=== PATIENT | female | born 1935 | race Caucasian/White ===

== ENCOUNTER 2017-02-16 22:08 | Emergency (ER) | payer MEDICARE, MEDICAID ==
[2017-02-16] MEDS ORDERED: Aspirin Low Dose CHEW TAB* 81 MG PO ONE (23:37)
--- NOTE | 2017-02-16 23:37 | ED ---
I, Oh,Soadrianna, scribed for Avinash Silver MD on 02/16/17 at 2235 . Shortness of Breath - HPI Summary HPI Summary: Somewhat limited HPI due to language barrier. Adult daughter present at bedside translating. This 81 y/o female presents to ED for SOB since this afternoon. Pt also reports racing/irregular palpitation, fatigue, and LUE pain radiating to esophagus. Pt had similar episode a couple of days ago. PMHx includes hypothyroidism, HTN, breast CA in 2004, lymphoma in 2010, and compression fx of L-, T- vertabrae. Daughter reports that pt has had normal EKG in spite of hx of recurrent palpitation. Primary care involves Dr. Billings. - History of Current Complaint Chief Complaint: EDChestPainROMI Time Seen by Provider: 02/16/17 22:25 Hx Obtained From: Patient, Medical Records Onset/Duration: Sudden Onset Timing: Intermittent Episodes Lasting: Current Severity: None Dyspnea At: Rest - Allergy/Home Medications Allergies/Adverse Reactions: Allergies Allergy/AdvReac Type Severity Reaction Status Date / Time RENATE Inhibitors AdvReac Coughing Verified 02/16/17 22:16 PMH/Surg Hx/FS Hx/Imm Hx Endocrine/Hematology History: Reports: Hx Diabetes, Hx Thyroid Disease, Hx Anemia Denies: Hx Systemic Lupus Erythematosus Cardiovascular History: Reports: Hx Hypercholesterolemia, Hx Hypertension Denies: Hx Congestive Heart Failure, Hx Pacemaker/ICD Respiratory History: Reports: Hx Pneumonia GI History: Reports: Hx Ulcer - hX of, treated with meds 1997, no problems since , Other GI Disorders - original sight lymphoma abdomen History: Denies: Hx Dialysis, Hx Renal Disease Musculoskeletal History: Reports: Hx Arthritis, Hx Back Problems Denies: Hx Rheumatoid Arthritis Sensory History: Reports: Hx Contacts or Glasses Denies: Hx Hearing Aid Opthamlomology History: Reports: Hx Contacts or Glasses Neurological History: Reports: Hx Headaches, Hx Migraine - Hx of, none in long time Psychiatric History: Denies: Hx Panic Disorder - Cancer History Cancer Type, Location and Year: Breast CA 2004, Lymphoma 2010 Hx Chemotherapy: Yes - Surgical History Surgery Procedure, Year, and Place: APPENDECTOMY,LEFT MASTECTOMY, Hx Anesthesia Reactions: No Infectious Disease History: No Infectious Disease History: Denies: Traveled Outside the [place] in Last 30 Days - Family History Known Family History: Negative: Other - negative adverse anesthesia reaction and malignant hyperthermia - Social History Alcohol Use: None Hx Substance Use: No Substance Use Type: Reports: None Hx Tobacco Use: No Smoking Status (MU): Never Smoked Tobacco Have You Smoked in the Last Year: No Review of Systems Positive: Fatigue. Negative: Fever Positive: Palpitations - racing/irregular Positive: Shortness Of Breath Positive: Other - LUE arm pain radiating to esophagus All Other Systems Reviewed And Are Negative: Yes Physical Exam Triage Information Reviewed: Yes Vital Signs On Initial Exam: Initial Vitals Temp Pulse Resp BP Pulse Ox 98.7 F 101 14 143/88 98 02/16/17 22:10 02/16/17 22:10 02/16/17 22:10 02/16/17 22:10 02/16/17 22:10 Vital Signs Reviewed: Yes Appearance: Positive: Well-Appearing, No Pain Distress Skin: Positive: Warm Head/Face: Positive: Normal Head/Face Inspection Eyes: Positive: TONE ENT: Positive: Hearing grossly normal Neck: Positive: Supple Respiratory/Lung Sounds: Positive: Breath Sounds Present Cardiovascular: Positive: RRR Abdomen Description: Positive: Nontender, Soft Bowel Sounds: Positive: Present Musculoskeletal: Positive: Strength/ROM Intact Neurological: Positive: Alert, Oriented to Person Place, Time Psychiatric: Positive: Affect/Mood Appropriate Diagnostics - Vital Signs Vital Signs Temp Pulse Resp BP Pulse Ox 02/16/17 22:10 98.7 F 101 14 143/88 98 - Laboratory Result Diagrams: 02/16/17 23:05 02/17/17 00:55 Lab Statement: Any lab studies that have been ordered have been reviewed, and results considered in the medical decision making process. - Radiology CXR Radiology Interpretation Completed By: ED Physician - See EMR - EKG 2219 Cardiac Rate: NL - 98 bpm EKG Rhythm: Sinus Rhythm EKG Interpretation: LBBB Re-Evaluation - Re-Evaluation First Eval Change: Improved - remins pain free Course/Dx - Diagnoses Provider Diagnoses: Palpitations Discharge - Discharge Plan Condition: Stable Disposition: HOME Patient Education Materials: Palpitations (ED) Referrals: Christy Billings MD [Primary Care Provider] - 2 Days The documentation as recorded by the Kam gore Soohyun accurately reflects the service I personally performed and the decisions made by , Avinash Silver MD.
[2017-02-16 23:57] LABS: Hematocrit 35 % (35-47); Hemoglobin 11.7 g/dl (12.0-16.0); Mean Corpuscular HGB Conc 34 g/dl (31-36); Mean Corpuscular Hemoglobin 32 pg (27-31); Mean Corpuscular Volume 94 fL (80-97); Mean Platelet Volume 9 um3 (7.4-10.4); Red Blood Count 3.71 10^6/ul (4.0-5.4); Red Cell Distribution Width 14 % (10.5-15); White Blood Count 7.3 10^3/ul (3.5-10.8)
[2017-02-17 00:17] LABS: ALT 21 U/L (7-52); Albumin 4.2 g/dL (3.2-5.2); Alkaline Phosphatase 76 U/L (34-104); Anion Gap 1 mmol/L (2-11); BUN/Creatinine Ratio 27.4 (8-20); Blood Urea Nitrogen 34 mg/dL (6-24); CO2 Carbon Dioxide 23 mmol/L (22-32); Calcium 8.5 mg/dL (8.6-10.3); Chloride 107 mmol/L (101-111); EGFR African American 53.7 (>60); EGFR Non-African American 41.7 (>60); Globulin 3.6 g/dL (2-4); Glucose 111 mg/dL (70-100); Sodium 131 mmol/L (133-145); Total Protein 7.8 g/dL (6.4-8.9); Troponin I 0.01 ng/mL (<0.04)
[2017-02-17 04:18] VITALS: BP 142/66
--- NOTE | 2017-02-17 07:57 | RAD ---
INDICATION: Chest pain. COMPARISON: Comparison is made with a prior chest x-ray study from February 17, 2016. TECHNIQUE: Dual-energy PA and lateral views of the chest were obtained. FINDINGS: The heart is within normal limits in size. Mediastinal and hilar contours appear within normal limits. The lungs are underinflated and clear. No pleural effusion is seen. There is a severe compression fracture of a lower dorsal vertebral body which is unchanged from a prior CT of the chest from February 17, 2016. IMPRESSION: NO EVIDENCE FOR ACTIVE CARDIOPULMONARY DISEASE.
== END 2017-02-17 04:20 | disposition home or self-care (01) ==
LOC: ED 22:08
DX: R00.2 Palpitations (principal); E03.9 Hypothyroidism, unspecified; I10 Essential (primary) hypertension; E11.9 Type 2 diabetes mellitus without complications; E78.00 Pure hypercholesterolemia, unspecified; I44.7 Left bundle-branch block, unspecified; Z85.3 Personal history of malignant neoplasm of breast
CPT/HCPCS: 36415; 71020; 80053; 84484; 85025; 93005; 99284; A9270-GY

== ENCOUNTER 2018-01-03 19:59 | Emergency (ER) | payer MEDICARE, MEDICAID ==
[2018-01-03] MEDS ORDERED: NS 0.9% 1000 ML* 1,000 ML IV ONE (22:17)
[2018-01-03 22:47] LABS: ABS Basophils 0.1 10^3/ul (0-0.2); ABS Eosinophils 0.3 10^3/ul (0-0.6); ABS Lymphocytes 2.6 10^3/ul (1.0-4.8); ABS Neutrophils 4.1 10^3/ul (1.5-7.7); ABS Nucleated RBC 0 10^3/ul; Eosinophil % 3.9 % (0-6); Hematocrit 34 % (35-47); Hemoglobin 11.3 g/dl (12.0-16.0); Lymphocyte % 31.9 % (25-47); Mean Corpuscular HGB Conc 34 g/dl (31-36); Mean Corpuscular Hemoglobin 32 pg (27-31); Mean Corpuscular Volume 94 fL (80-97); Mean Platelet Volume 8 um3 (7.4-10.4); Nucleated Red Blood Cells % 0; Platelet Count 237 10^3/ul (150-450); Red Blood Count 3.57 10^6/ul (4.0-5.4); Red Cell Distribution Width 14 % (10.5-15); White Blood Count 8.1 10^3/ul (3.5-10.8)
[2018-01-03 22:55] LABS: INR 0.88 (0.77-1.02)
[2018-01-03 23:01] LABS: EGFR Non-African American 38.1 (>60)
[2018-01-03 23:32] VITALS: BP 114/57
--- NOTE | 2018-01-04 06:00 | ED ---
Rivera Newman Nikita, scribed for Valentin Cash MD on 01/03/18 at 2210 . HPI Chest Pain - HPI Summary HPI Summary: This patient is an 82 year old F presenting to ED with a chief complaint of CP since 1600 today. The CC is described as feeling burning with extra beats ( PVCs). The patient rates the pain 5/10 in severity. Symptoms aggravated by nothing. Symptoms alleviated by nothing. Patient reports SOB, palpitations, and abdominal bloating. Family reports she has a cough (secondary to heart medication). Patient denies N/V/D. Pt had a heart catheterization. - History of Current Complaint Chief Complaint: EDChestPainROMI Time Seen by Provider: 01/03/18 21:59 Hx Obtained From: Patient Onset/Duration: Started Hours Ago, Still Present Timing: Constant, Lasting Hours Initial Severity: Moderate Current Severity: Moderate Pain Intensity: 5 Pain Scale Used: 0-10 Numeric Character: Burning Aggravating Factor(s): Nothing Alleviating Factor(s): Nothing Associated Signs and Symptoms: Positive: Other: - Allergy/Home Medications Allergies/Adverse Reactions: Allergies Allergy/AdvReac Type Severity Reaction Status Date / Time RENATE Inhibitors Allergy Unknown Verified 01/03/18 20:06 Reaction Details PMH/Surg Hx/FS Hx/Imm Hx Endocrine/Hematology History: Reports: Hx Diabetes, Hx Thyroid Disease, Hx Anemia Denies: Hx Systemic Lupus Erythematosus Cardiovascular History: Reports: Hx Hypercholesterolemia, Hx Hypertension Denies: Hx Congestive Heart Failure, Hx Pacemaker/ICD Respiratory History: Reports: Hx Pneumonia GI History: Reports: Hx Ulcer - hX of, treated with meds 1997, no problems since , Other GI Disorders - original sight lymphoma abdomen History: Denies: Hx Dialysis, Hx Renal Disease Musculoskeletal History: Reports: Hx Arthritis, Hx Back Problems Denies: Hx Rheumatoid Arthritis, Hx Osteoporosis - UNKNOWN SPEAKS CHILEAN ONLY Sensory History: Reports: Hx Contacts or Glasses Denies: Hx Hearing Aid Opthamlomology History: Reports: Hx Contacts or Glasses Neurological History: Reports: Hx Headaches, Hx Migraine - Hx of, none in long time Psychiatric History: Denies: Hx Panic Disorder - Cancer History Cancer Type, Location and Year: Breast CA 2004, Lymphoma 2010 Hx Chemotherapy: Yes Hx Radiation Therapy: Yes - Surgical History Surgery Procedure, Year, and Place: APPENDECTOMY,LEFT MASTECTOMY, growths removed from skin, Hx Anesthesia Reactions: No Infectious Disease History: No Infectious Disease History: Denies: Traveled Outside the [place] in Last 30 Days - Family History Known Family History: Negative: Other - negative adverse anesthesia reaction and malignant hyperthermia - Social History Alcohol Use: None Hx Substance Use: No Substance Use Type: Reports: None Hx Tobacco Use: No Smoking Status (MU): Never Smoked Tobacco Have You Smoked in the Last Year: No Review of Systems Positive: Palpitations, Chest Pain Positive: Shortness Of Breath, Cough Positive: Other - abdominal bloating. Negative: Vomiting, Diarrhea, Nausea All Other Systems Reviewed And Are Negative: Yes Physical Exam - Summary Physical Exam Summary: Appearance: Well appearing, no pain distress Skin: warm, dry, reflects adequate perfusion, Pallor skin, Mastectomy scar on her chest Head/face: normal Eyes: EOMI, TONE ENT: normal Neck: supple, non-tender Respiratory: CTA, breath sounds present Cardiovascular: pulses symmetrical, Irregularly irregular, no murmur Abdomen: non-tender, soft Bowel: present Musculoskeletal: normal, strength/ROM intact, no peripheral edema Neuro: normal, sensory motor intact, A&Ox3 Triage Information Reviewed: Yes Vital Signs On Initial Exam: Initial Vitals Temp Pulse Resp BP Pulse Ox 98.6 F 74 20 127/79 97 01/03/18 20:08 01/03/18 20:08 01/03/18 20:08 01/03/18 20:08 01/03/18 20:08 Vital Signs Reviewed: Yes Diagnostics - Vital Signs Vital Signs Temp Pulse Resp BP Pulse Ox 01/03/18 20:08 98.6 F 74 20 127/79 97 - Laboratory Lab Results: Lab Results 01/03/18 01/03/18 01/03/18 Range/Units 22:30 22:30 22:30 WBC 8.1 (3.5-10.8) 10^3/ul RBC 3.57 L (4.0-5.4) 10^6/ul Hgb 11.3 L (12.0-16.0) g/dl Hct 34 L (35-47) % MCV 94 (80-97) fL MCH 32 H (27-31) pg MCHC 34 (31-36) g/dl RDW 14 (10.5-15) % Plt Count 237 (150-450) 10^3/ul MPV 8 (7.4-10.4) um3 Neut % (Auto) 50.5 (38-83) % Lymph % (Auto) 31.9 (25-47) % [place] % (Auto) 12.7 H (0-7) % Eos % (Auto) 3.9 (0-6) % Baso % (Auto) 1.0 (0-2) % Absolute Neuts (auto) 4.1 (1.5-7.7) 10^3/ul Absolute Lymphs (auto) 2.6 (1.0-4.8) 10^3/ul Absolute Monos (auto) 1.0 H (0-0.8) 10^3/ul Absolute Eos (auto) 0.3 (0-0.6) 10^3/ul Absolute Basos (auto) 0.1 (0-0.2) 10^3/ul Absolute Nucleated RBC 0 10^3/ul Nucleated RBC % 0 INR (Anticoag Therapy) 0.88 (0.77-1.02) APTT 27.4 (26.0-36.3) seconds Sodium (133-145) mmol/L Potassium (3.5-5.0) mmol/L Chloride (101-111) mmol/L Carbon Dioxide (22-32) mmol/L Anion Gap (2-11) mmol/L BUN (6-24) mg/dL Creatinine (0.51-0.95) mg/dL Est GFR ( Amer) (>60) Est GFR (Non-Af Amer) (>60) BUN/Creatinine Ratio (8-20) Glucose (70-100) mg/dL Lactic Acid (0.5-2.0) mmol/L Calcium (8.6-10.3) mg/dL Total Bilirubin (0.2-1.0) mg/dL AST (13-39) U/L ALT (7-52) U/L Alkaline Phosphatase (34-104) U/L Troponin I (<0.04) ng/mL B-Natriuretic Peptide 126 H ( - 100) pg/mL Total Protein (6.4-8.9) g/dL Albumin (3.2-5.2) g/dL Globulin (2-4) g/dL Albumin/Globulin Ratio (1-3) TSH (0.34-5.60) mcIU/mL 01/03/18 01/03/18 Range/Units 22:30 22:30 WBC (3.5-10.8) 10^3/ul RBC (4.0-5.4) 10^6/ul Hgb (12.0-16.0) g/dl Hct (35-47) % MCV (80-97) fL MCH (27-31) pg MCHC (31-36) g/dl RDW (10.5-15) % Plt Count (150-450) 10^3/ul MPV (7.4-10.4) um3 Neut % (Auto) (38-83) % Lymph % (Auto) (25-47) % [place] % (Auto) (0-7) % Eos % (Auto) (0-6) % Baso % (Auto) (0-2) % Absolute Neuts (auto) (1.5-7.7) 10^3/ul Absolute Lymphs (auto) (1.0-4.8) 10^3/ul Absolute Monos (auto) (0-0.8) 10^3/ul Absolute Eos (auto) (0-0.6) 10^3/ul Absolute Basos (auto) (0-0.2) 10^3/ul Absolute Nucleated RBC 10^3/ul Nucleated RBC % INR (Anticoag Therapy) (0.77-1.02) APTT (26.0-36.3) seconds Sodium 138 (133-145) mmol/L Potassium 4.2 (3.5-5.0) mmol/L Chloride 108 (101-111) mmol/L Carbon Dioxide 24 (22-32) mmol/L Anion Gap 6 (2-11) mmol/L BUN 36 H (6-24) mg/dL Creatinine 1.34 H (0.51-0.95) mg/dL Est GFR ( Amer) 48.9 (>60) Est GFR (Non-Af Amer) 38.1 (>60) BUN/Creatinine Ratio 26.9 H (8-20) Glucose 107 H (70-100) mg/dL Lactic Acid 1.4 (0.5-2.0) mmol/L Calcium 9.2 (8.6-10.3) mg/dL Total Bilirubin 0.40 (0.2-1.0) mg/dL AST 20 (13-39) U/L ALT 16 (7-52) U/L Alkaline Phosphatase 60 (34-104) U/L Troponin I 0.01 (<0.04) ng/mL B-Natriuretic Peptide ( - 100) pg/mL Total Protein 7.1 (6.4-8.9) g/dL Albumin 3.8 (3.2-5.2) g/dL Globulin 3.3 (2-4) g/dL Albumin/Globulin Ratio 1.2 (1-3) TSH 0.12 L (0.34-5.60) mcIU/mL Result Diagrams: 01/03/18 22:30 01/03/18 22:30 Lab Statement: Any lab studies that have been ordered have been reviewed, and results considered in the medical decision making process. - Radiology CXR Radiology Interpretation Completed By: ED Physician - No acute pulmonary disease. - EKG 2008 Cardiac Rate: NL EKG Rhythm: Sinus Rhythm - [address] Segment: Non-Specific EKG Interpretation: L axis deviation, LBBB, no acute findings Re-Evaluation - Re-Evaluation First Eval Re-Evaluation Time: 23:19 Change: Improved Comment: The patient feels less extra beats and feels better with the medication and fluids. Chest Pain Course/Dx - Course Course Of Treatment: Ex-anesthesia doc with c/o palpitations. PVCs noted. No tachycardia. Labs benign. Improved with ivf and beta benji. TSH low, to f/u for reeval with PMD. No thyrotoxicosis. - Chest Pain Differential Diagnosis/HQI/PQRI: Other: - PVCs, chronic renal insufficiencies, chronic anemia - Diagnoses Provider Diagnoses: PVCs (premature ventricular contractions), Chronic renal insufficiency, Chronic anemia, Hyperthyroidism Discharge - Discharge Plan Condition: Good Disposition: HOME Patient Education Materials: Heart Palpitations (ED) Print Language: CHILEAN Referrals: Susan Merino MD [Primary Care Provider] - Additional Instructions: See your doctor on Friday for reevaluation and adjustment of your medications. Return if worse, new symptoms or other concerns. The documentation as recorded by the Rivera gore Nikita accurately reflects the service I personally performed and the decisions made by , Valentin Cash MD.
--- NOTE | 2018-01-04 07:20 | RAD ---
INDICATION: Chest pain COMPARISON: February 16, 2017 TECHNIQUE: An AP portable view obtained at 2235 hours is submitted. FINDINGS: Bones/Soft Tissues: There are no acute bony findings. Cardiomediastinal: The cardiomediastinal silhouette is mildly enlarged with left ventricular configuration.. Lungs: There are no infiltrates. Pleura: There are no pleural effusions. Other: None IMPRESSION: NO ACTIVE DISEASE.
== END 2018-01-03 23:46 | disposition home or self-care (01) ==
LOC: ED 19:59
DX: I49.3 Ventricular premature depolarization (principal); N18.9 Chronic kidney disease, unspecified; D53.9 Nutritional anemia, unspecified; E05.90 Thyrotoxicosis, unspecified without thyrotoxic crisis or storm; R07.9 Chest pain, unspecified; R00.2 Palpitations; R06.02 Shortness of breath; R05 Cough
CPT/HCPCS: 36415; 71045; 80053; 83605; 83880; 84443; 84484; 85025; 85610; 85730; 93005; 99284

== ENCOUNTER 2018-06-13 02:15 | Inpatient (IN) | payer MEDICARE, MEDICAID ==
--- OUTSIDE RECORDS SUMMARY | 2018-06-13 02:31 | XMS REPORT ---
:1935 External Reference #:[id number] Author Organization [employer] Address [address] [place] [address] [place] [address] Phone [phone] Care Team Providers Name Role Phone Susan Merino MD Primary Care Physician Unavailable Payers Type Date Identification Numbers Payment Provider Subscriber Medicare Primary Policy Number: [id number] Medicare Belen Macdonald PayID: [id number] [address] [place] [address] [facility] Part [facility] Policy Number: [id number] Medicaid Belen Macdonald PayID: [id number] [address] [place] [address] Advance Directives Type Date Description Status Comment Other Directive 12/18/2017 Health Care Proxy Current and Verified Problems Date Description Provider Status Onset: 12/16/2013 Left bundle branch block Arturo Brooks M.D. Active Onset: 12/16/2013 Essential hypertension Arturo Brooks M.D. Active Onset: Squamous cell carcinoma in situ Active Onset: Impaired fasting glycaemia Susan Merino MD Active Onset: 01/16/2009 Personal history of primary malignant Susan Merino M.D. Active neoplasm of breast Onset: 09/16/2017 Closed fracture of lumbar vertebra Susan Merino M.D. Active without spinal cord injury Note: L1 Onset: 09/16/2017 Spinal stenosis Susan Merino M.D. Active Note: lumbar Onset: Coronary atherosclerosis Active Note: per records Onset: 09/16/2017 Paroxysmal tachycardia Susan Merino M.D. Active Note: atrial per records Onset: 09/16/2017 Hypothyroidism Susan Merino M.D. Active Onset: 01/16/2009 Non-Hodgkin's lymphoma (clinical) Susan Merino M.D. Active Note: Dr. Ferrara Onset: 11/12/2017 Osteopenia Susan Merino M.D. Active Onset: 05/25/2018 Posterior vitreous detachment Susan Merino M.D. Active Note: L eye Dr. Eugene Onset: 05/25/2018 Age related macular degeneration Susan Merino M.D. Active Onset: 12/16/2013 Precordial pain Arturo Brooks M.D. Resolved Resolved: 09/16/2017 Social History Type Date Description Comments Lives With Family ETOH Use Denies alcohol use Smoking Patient has never smoked Recreational Drug Use Never Used Drugs Exercise Type/Frequency Exercises rarely General Hx Text originally from [place] Allergies, Adverse Reactions, Alerts Date Description Reaction Status Severity Comments 09/16/2017 Skin Glue active 12/18/2017 Valsartan active cough 12/16/2013 NKDA inactive Medications Medication Date Status Form Strength Qnty SIG Indications Ordering Provider Shingrix 05/25 Active Suspension 50mcg 1unit intramuscular Rec s x 1 then Angelique, repeat in 4 M.D. months Paroxetine HCL 05/25 Active Tablets 10mg 90tab take one F32.89 Susan s tablet by Angelique, mouth every M.D. day Levothyroxine 01/08 Active Tablets 50mcg 90tab 1 by mouth E03.9 Susan s every day Bentley Merino Omeprazole Active Capsules DR 40mg 90cap 1 by mouth Susan / s every day Bentley Merino Ropinirole HCL Active Tablets 0.5mg One to two Galyanova /0000 tabs Po at hs Christy MD Hydrocodone-Ac Active Tablets 5-325mg One tab q 6 Galyanova etaminophen / hrs prn Christy MD Lancets Misc Active Unknown / Dilcia Contour Active Unknown Glucose Test Strips Calcium / Active Capsules one tab bid Unknown Vitamin D /0000 Multi-Day Active Tablets 1 by mouth Unknown /0000 every day Atorvastatin Active Tablets 40mg 90tab Take One Susna Calcium /0000 s Tablet By Merino, Mouth Once M.D. Daily Carvedilol Active Tablets 12.5mg 180ta take one Susan /0000 bs tablet by Merino, mouth twice a M.D. day Inter Occular Active q four weeks Unknown Shot / L eye Eyelasta Dr. Eugene Amlodipine 10/14 Hx Tablets 2.5mg 90tab Take 1 I10 Susan Besylate s Tablet By Angelique, - Mouth Once M.D. 05/25 Levothyroxine 10/14 Hx Tablets 75mcg 90tab 1 by mouth E03.9 Susan Sodium s every day Germania Merino M.D. 01/08 Valsartan 09/16 Hx Tablets 80mg 90tab 1 by mouth I10 Susan s every day Germania Merino M.D. 12/18 Atenolol Hx Tablets 25mg 90tab 1/2 tablet po Unknown /0000 s qd - 09/16 Hydrocodone/Ac Hx Tablets 5-325mg 40tab 1-2 po qid Unknown etaminophen /0000 s prn pain - 09/16 Levofloxacin Hx Tablets 250mg 5tabs 1 by mouth as Unknown /0000 directed - 09/16 Simvastatin Hx Tablets 20mg 90tab 1 po qd Unknown /0000 s - 01/08 Diovan Hx Tablets 80mg 30tab Not Unknown /0000 s taking---1 po - qd 09/16 Zoledronic Hx Solution 5mg/100ML 100ML IV one Unknown Acid /0000 time - 09/16 Liquid 00 Hx Unknown Calcium/Vitami /0000 n D - 03/19 Levothyroxine Hx Tablets 50mcg 30tab 1 by mouth Susan Sodium /0000 s every day Germania Merino M.D. 10/14 Valsartan Hx Tablets 80mg Galyanova /0000 , - Christy 09/16 MD Glucose Test 00 Hx Unknown Strips /0000 - 09/16 One Touch Test Hx Unknown Strips /0000 - 09/16 Fluoxetine HCL Hx Capsules 10mg 1 by mouth Unknown /0000 every day - 09/16 Medications Administered in Office Medication Date Status Form Strength Qnty SIG Indications Ordering Provider Pneumococcal,U Administered Injection Unknown nspecified 017 Immunizations CPT Code Status Date Vaccine Lot # [id number] Given 12/18/2017 Tdap - Tetanus/Diptheria/Acellular Pertussis [id number] Given 08/20/2017 Influenza Virus Vaccine, Quadrivalent, Split, Preservative Free [id number] Given 11/16/2014 Pneumococcal Conjugate Vaccine 13 Valent For Intramuscular Use Vital Signs Date Vital Result Comment 05/25/2018 Height 60.7 inches 5'0.70" Weight 161.00 lb Heart Rate 62 /min BP Systolic Sitting 130 mmHg BP Diastolic Sitting 76 mmHg O2 % BldC Oximetry 98 % BMI (Body Mass Index) 30.7 kg/m2 03/19/2018 Weight 162.00 lb Heart Rate 70 /min BP Systolic Sitting 130 mmHg BP Diastolic Sitting 70 mmHg O2 % BldC Oximetry 96 % 03/11/2018 Weight 163.00 lb Heart Rate 64 /min BP Systolic Sitting 120 mmHg BP Diastolic Sitting 80 mmHg O2 % BldC Oximetry 94 % 01/08/2018 Weight 161.00 lb Heart Rate 70 /min BP Systolic Sitting 115 mmHg BP Diastolic Sitting 72 mmHg Body Temperature 97.9 F O2 % BldC Oximetry 94 % 12/18/2017 Weight 162.00 lb Heart Rate 97 /min BP Systolic Sitting 110 mmHg BP Diastolic Sitting 70 mmHg Body Temperature 97.7 F O2 % BldC Oximetry 94 % 10/23/2017 Heart Rate 74 /min BP Systolic Sitting 128 mmHg 128/75 standing Right arm BP Diastolic Sitting 78 mmHg 128/75 standing Right arm Body Temperature 98.3 F O2 % BldC Oximetry 93 % 10/14/2017 Weight 167.00 lb Heart Rate 78 /min BP Systolic Sitting 146 mmHg BP Diastolic Sitting 70 mmHg Body Temperature 98.1 F O2 % BldC Oximetry 95 % 09/16/2017 Height 60.7 inches 5'0.70" Weight 163.25 lb Heart Rate 73 /min BP Systolic Sitting 136 mmHg BP Diastolic Sitting 86 mmHg O2 % BldC Oximetry 93 % BMI (Body Mass Index) 31.1 kg/m2 12/16/2013 Height 61.5 inches 5'1.50" Weight 159.00 lb no shoes BMI (Body Mass Index) 29.6 kg/m2 Results Test Date Test Result H/L Range Note Laboratory test 05/25/2018 Hemoglobin A1c 6.4 5-7 finding Laboratory test 03/11/2018 TSH (Thyroid Stim 1.20 mcIU/mL 0.34-5.60 finding Horm) Free T4 (Free Thyroxine) 0.94 ng/dL 0.61-1.12 T3 Free 2.80 pg/mL 2.5-3.9 Basic Metabolic Panel 03/11/2018 Sodium 141 mmol/L 139-145 Potassium 4.0 mmol/L 3.5-5.0 Chloride 106 mmol/L 101-111 Co2 Carbon Dioxide 24 mmol/L 22-32 Anion Gap 11 mmol/L 2-11 Glucose 93 mg/dL 70-100 Blood Urea Nitrogen 23 mg/dL 6-24 Creatinine 1.21 mg/dL High 0.51-0.95 BUN/Creatinine Ratio 19.0 8-20 Calcium 9.3 mg/dL 8.6-10.3 Egfr Non- 42.7 >60 Egfr 54.9 >60 1 CBC Auto Diff 03/11/2018 White Blood Count 7.3 10^3/uL 3.5-10.8 Red Blood Count 3.84 10^6/uL Low 4.0-5.4 Hemoglobin 12.1 g/dL 12.0-16.0 Hematocrit 36 % 35-47 Mean Corpuscular Volume 93 fL 80-97 Mean Corpuscular Hemoglobin 32 pg High 27-31 Mean Corpuscular HGB Conc 34 g/dL 31-36 Red Cell Distribution Width 14 % 10.5-15 Platelet Count 262 10^3/uL 150-450 Mean Platelet Volume 8.7 um3 7.4-10.4 Abs Neutrophils 3.8 10^3/uL 1.5-7.7 Abs Lymphocytes 2.5 10^3/uL 1.0-4.8 Abs Monocytes 0.6 10^3/uL 0-0.8 Abs Eosinophils 0.3 10^3/uL 0-0.6 Abs Basophils 0.1 10^3/uL 0-0.2 Abs Nucleated RBC 0 10^3/uL Granulocyte % 51.8 % 38-83 Lymphocyte % 33.6 % 25-47 Monocyte % 8.6 % High 0-7 Eosinophil % 4.7 % 0-6 Basophil % 1.3 % 0-2 Nucleated Red Blood Cells % 0 Ua Routine 03/11/2018 Ua Specific Carpenter 1.020 Ua PH 5 Ua Color bright yellow Ua Appera clear Ua WBC - Ua Protein trace Ua Glucose norm Ua Ketones - Ua Bilirubin - Ua Urobilinogen norm Ua Nitrite - Ua Occult Blood - Laboratory test finding 01/08/2018 TSH (Thyroid Stim 0.15 mcIU/mL Low 0.34 -5.60 Horm) T3 Free 3.00 pg/mL 2.5-3.9 Free T4 (Free Thyroxine) 1.13 ng/dL High 0.61-1.12 Laboratory test finding 01/03/2018 Troponin-I (TnI) 0.01 ng/mL <0.04 TSH (Thyroid Stim Horm) 0.12 mcIU/mL Low 0.34-5.60 Comp Metabolic Panel 01/03/2018 Sodium 138 mmol/L 133-145 Potassium 4.2 mmol/L 3.5-5.0 Chloride 108 mmol/L 101-111 Co2 Carbon Dioxide 24 mmol/L 22-32 Anion Gap 6 mmol/L 2-11 Glucose 107 mg/dL High 70-100 Blood Urea Nitrogen 36 mg/dL High 6-24 Creatinine 1.34 mg/dL High 0.51-0.95 BUN/Creatinine Ratio 26.9 High 8-20 Calcium 9.2 mg/dL 8.6-10.3 Total Protein 7.1 g/dL 6.4-8.9 Albumin 3.8 g/dL 3.2-5.2 Globulin 3.3 g/dL 2-4 Albumin/Globulin Ratio 1.2 1-3 Total Bilirubin 0.40 mg/dL 0.2-1.0 Alkaline Phosphatase 60 U/L 34-104 Alt 16 U/L 7-52 Ast 20 U/L 13-39 Egfr Non- 38.1 >60 Egfr 48.9 >60 2 CBC Auto Diff 01/03/2018 White Blood Count 8.1 10^3/uL 3.5-10.8 Red Blood Count 3.57 10^6/uL Low 4.0-5.4 Hemoglobin 11.3 g/dL Low 12.0-16.0 Hematocrit 34 % Low 35-47 Mean Corpuscular Volume 94 fL 80-97 Mean Corpuscular Hemoglobin 32 pg High 27-31 Mean Corpuscular HGB Conc 34 g/dL 31-36 Red Cell Distribution Width 14 % 10.5-15 Platelet Count 237 10^3/uL 150-450 Mean Platelet Volume 8 um3 7.4-10.4 Abs Neutrophils 4.1 10^3/uL 1.5-7.7 Abs Lymphocytes 2.6 10^3/uL 1.0-4.8 Abs Monocytes 1.0 10^3/uL High 0-0.8 Abs Eosinophils 0.3 10^3/uL 0-0.6 Abs Basophils 0.1 10^3/uL 0-0.2 Abs Nucleated RBC 0 10^3/uL Granulocyte % 50.5 % 38-83 Lymphocyte % 31.9 % 25-47 Monocyte % 12.7 % High 0-7 Eosinophil % 3.9 % 0-6 Basophil % 1.0 % 0-2 Nucleated Red Blood Cells % 0 Laboratory test finding 01/03/2018 Partial Thrombo Time 27.4 seconds 26.0 -36.3 PTT B-Type Natriuretic Peptide BNP 126 pg/mL High 3 Inr/Protime 01/03/2018 Inr 0.88 0.77-1.02 Laboratory test 01/03/2018 Lactic Acid 1.4 mmol/L 0.5-2.0 4 finding Laboratory test 01/01/2018 Surgical Pathology SEE RESULT BELOW 5, 6 finding Lipid Profile 10/08/2017 Triglycerides 85 mg/dL 7 (Trig/Chol/HDL) Cholesterol 127 mg/dL 8 HDL Cholesterol 41.7 mg/dL 9 LDL Cholesterol 68 mg/dL 10 Comp Metabolic Panel 10/08/2017 Sodium 139 mmol/L 133-145 Potassium 4.9 mmol/L 3.5-5.0 Chloride 106 mmol/L 101-111 Co2 Carbon Dioxide 27 mmol/L 22-32 Anion Gap 6 mmol/L 2-11 Glucose 97 mg/dL 70-100 Blood Urea Nitrogen 29 mg/dL High 6-24 Creatinine 1.33 mg/dL High 0.51-0.95 BUN/Creatinine Ratio 21.8 High 8-20 Calcium 9.4 mg/dL 8.6-10.3 Total Protein 6.6 g/dL 6.4-8.9 Albumin 3.8 g/dL 3.2-5.2 Globulin 2.8 g/dL 2-4 Albumin/Globulin Ratio 1.4 1-3 Total Bilirubin 0.70 mg/dL 0.2-1.0 Alkaline Phosphatase 63 U/L 34-104 Alt 15 U/L 7-52 Ast 19 U/L 13-39 Egfr Non- 38.4 >60 Egfr 49.4 >60 11 Laboratory test 10/08/2017 TSH (Thyroid Stim 4.01 mcIU/mL 0.34-5.60 finding Horm) Laboratory test 09/16/2017 Hemoglobin A1c 6.3 5-7 finding Laboratory test 09/05/2017 Surgical Pathology SEE RESULT BELOW finding 1 Because ethnic data is not always readily available, this report includes an eGFR for both -Americans and non- Americans. The National Kidney Disease Education Program (NKDEP) does not endorse the use of the MDRD equation for patients that are not between the ages of 18 and 70, are , have extremes of body size, muscle mass, or nutritional status, or are non- or non-. According to the National Kidney Foundation, irrespective of diagnosis, the stage of the disease is based on the level of kidney function: Stage Description GFR(mL/min/1.73 m(2)) 1 Kidney damage with normal or decreased GFR 90 2 Kidney damage with mild decrease in GFR 60-89 3 Moderate decrease in GFR 30-59 4 Severe decrease in GFR 15-29 5 Kidney failure <15 (or dialysis) 2 Because ethnic data is not always readily available, this report includes an eGFR for both -Americans and non- Americans. The National Kidney Disease Education Program (NKDEP) does not endorse the use of the MDRD equation for patients that are not between the ages of 18 and 70, are , have extremes of body size, muscle mass, or nutritional status, or are non- or non-. According to the National Kidney Foundation, irrespective of diagnosis, the stage of the disease is based on the level of kidney function: Stage Description GFR(mL/min/1.73 m(2)) 1 Kidney damage with normal or decreased GFR 90 2 Kidney damage with mild decrease in GFR 60-89 3 Moderate decrease in GFR 30-59 4 Severe decrease in GFR 15-29 5 Kidney failure <15 (or dialysis) 3 >100 to <200 pg/mL: likely compensated congestive heart failure (CHF) 200 to 400 pg/mL: likely moderate CHF >400 pg/mL: likely moderate to severe CHF 4 [place] Severe Sepsis and Septic Shock Management Bundle Measure requires all lactic acids initially measuring >2.0 mmol/L be repeated. 5 [id number] 6 SEE RESULT BELOW Name: MARISOLPHYLLISBELEN L : [address]: Margie Mota MD Acct: [id number] Unit: [id number] AGE: 82 Location: [facility] Re01/01/18 SEX: F Status: REG REF SPEC: [id number] BRYANT: 01/01/18- SUBM DR: Margie Mota MD REQ: [id number] RECD: 01/01/18 STATUS: KELLIE KHAN DR: Susan Merino MD _ ORDERED: LEVEL 4 COMMENTS: [id number] FINAL DIAGNOSIS Skin, left superior popliteal fossa, biopsy: -- Verrucous seborrheic keratosis, irritated and inflamed. PRE-OPERATIVE DIAGNOSIS Erythematous papule with hyperkeratotic scale. GROSS DESCRIPTION The specimen is received in formalin labeled, Left Superior Popliteal Fossa, and consists of a 0.9 x 0.5 cm chu white irregular to ovoid skin shave with a central 0.5 x 0.3 x 0.2 cm chu-white granular keratotic papule. The specimen is inked, trisected and entirely submitted in one cassette. Signed (signature on file) June Mg MD 12/21 0948 END OF REPORT DEPARTMENT OF PATHOLOGY, [address] [place] [address] [place] Rodríguez M.D. Director [facility] # [id number] 7 Desirable: <150 Borderline High: 150-199 High: 200-499 Very High: >500 8 Desirable: <200 Borderline High: 200-239 High: >239 9 Low: <40 Desirable: 40-60 High: >60 10 Desirable: <100 Near Optimal: 100-129 Borderline High: 130-159 High: 160-189 Very High: >189 11 Because ethnic data is not always readily available, this report includes an eGFR for both -Americans and non- Americans. The National Kidney Disease Education Program (NKDEP) does not endorse the use of the MDRD equation for patients that are not between the ages of 18 and 70, are , have extremes of body size, muscle mass, or nutritional status, or are non- or non-. According to the National Kidney Foundation, irrespective of diagnosis, the stage of the disease is based on the level of kidney function: Stage Description GFR(mL/min/1.73 m(2)) 1 Kidney damage with normal or decreased GFR 90 2 Kidney damage with mild decrease in GFR 60-89 3 Moderate decrease in GFR 30-59 4 Severe decrease in GFR 15-29 5 Kidney failure <15 (or dialysis) 12 [id number] 13 SEE RESULT BELOW Name: BELEN MACDONALD : [address]: Avinash Lawrence MD Acct: [id number] Unit: [id number] AGE: 82 Location: [facility] Re09/05/17 SEX: F Status: REG REF SPEC: [id number] BRYANT: 09/05/[address] [facility] [address]: Avinash Lawrence MD REQ: [id number] RECD: 09/05/170 STATUS: KELLIE KHAN DR: Susan Billings MD _ ORDERED: LEVEL 4 COMMENTS: [id number] FINAL DIAGNOSIS Skin, right superior chest, excision: -- Squamous cell carcinoma in situ. -- All margins are clear. CLINICAL HISTORY Irregular scaly plaque PRE-OPERATIVE DIAGNOSIS Suture brewster 12 o'clock superior apex margin GROSS DESCRIPTION The specimen is received in formalin labeled, Excision Skin Lesion Right Superior Chest, Suture Brewster 12:00 Superior [place] Margin, and consists of a 2.9 x 1.2 cm chu- white wrinkled skin ellipse excised to a maximum depth of 0.6 cm with a central 0.9 x 0.8 cm faint chu area. There is a suture attached to one long axis which designates the 12: 00 superior apex margin. The specimen is inked as follows: 9:00 half black, 3:00 half blue and 12:00 tip green, serially sectioned from 12:00 to 6:00 and entirely submitted in cassettes A through D to include ellipse ends in cassette A. Signed (signature on file) June Mg MD 05/19 1101 END OF REPORT * ML=Testing performed at Main Lab DEPARTMENT OF PATHOLOGY, [address] [place] [address] London Rodríguez M.D. Director [facility] # [id number] Procedures Date CPT Code Description Status 05/15/2018 Diabetic Retinal Eye Exam Completed 11/11/2017 Bone Mineral Density Test Completed 12/16/2013 17209 EKG Tracing & Interpretation Completed Encounters Type Date Location Provider CPT E/M Dx Office Visit 03/19/2018 1:40p [facility] Internal Medicine Susan Merino M.D. 36381 I10 - Jorge Office Visit 03/11/2018 1:40p [facility] Susan Merino M.D. 26692 R30.0 - Jorge E03.9 N18.3 R60.0 Office Visit 01/08/2018 10:50a [facility] Internal Medicine Susan Merino M.D. 83234 E03.9 - Jorge R00.2 Office Visit 12/18/2017 11:50a [facility] Germania Merino M.D. 18408 R05 Jorge I10 R09.89 Z23 Office Visit 10/14/2017 11:50a [facility] Laura Merino M.D. 81027 I10 Jorge N18.3 E78.2 E03.9 S32.009A M80.00xS Office Visit 09/16/2017 10:30a [facility] Internal Medicine Susan Merino 25696 R73.01 - Jorge Hagan I10 E78.2 E03.9 Office Visit 12/16/2013 12:45p [facility] Arturo Brooks, 53912 786.51 [facility] [place] 426.3 401.9 Office Visit 03/20/2012 9:20a [facility] [place] Chavez, 68329 805.4 Of [facility] Hagan 721.3 Plan of Care Future Appointment(s):06/22/2018 12:10 pm - Susan Merino M.D. at [facility] Internal Medicine - [id number]/24/2018 11:50 am - Susan Merino M.D. at [facility] Internal Medicine - [id number]/23/2018 - Susan Merino M.D.R73.01 Impaired fasting glucoseFollow up:5 htcbsyW01.30 Unspecified disorder of binocular visionFollow up:DORA from Dr. EugeneH35.30 Unspecified macular degenerationComments:Please use AREDS multivitamin daily for your macular tsbslbdvvvynL23.89 Other specified depressive episodesNew Medication:Paroxetine HCL 10 mgFollow up:4 wks
--- NOTE | 2018-06-13 02:42 | ED ---
HPI Chest Pain - HPI Summary HPI Summary: This is scribe, Balwinder Traore, documenting for attending Dr. Andreas MD. An 83 y/o F presents to ED with c/o R anterior CP onset 1700 yesterday. Pain radiates to RUE, back and jaw. She had an ocular injection in her L eye at [place] yesterday, and she began to feel bad on the car ride home. She took IBP which mildly alleviated the sx. Aggravating factors: deep breaths, movement and position. Associated sx: SOB secondary to CP, neck and head pain, dizziness. Denies n/v, abd pain. Pt is unable to do her ADL. Earlier yesterday she had pain similar to this but was less severe and it spontaneously resolved. PMHx: arrhythmia, ischemia, catherization, but denies VA. No PMHx: DVT, PE. Pt was an anesthesiologist. Son is present and is helping translate for pt. I, Dr. Johns, personally performed the services described in this documentation as scribed in my presence and it is both accurate and complete. - History of Current Complaint Chief Complaint: EDChestPainROMI Time Seen by Provider: 06/13/18 02:38 Hx Obtained From: Patient, Family/Hotel Service Manager - son Onset/Duration: Started Hours Ago, Still Present Timing: Constant Initial Severity: Severe Current Severity: Severe Pain Intensity: 9 Pain Scale Used: 0-10 Numeric Chest Pain Location: Right Anterior Chest Pain Radiates: Yes Chest Pain Radiates To:: Back, Shoulder, Jaw Aggravating Factor(s): Movement, Deep Breaths Alleviating Factor(s): OTC Meds - mildly Associated Signs and Symptoms: Positive: Dizziness, Shortness of Breath - due to CP, Other: - neck and head pain. Negative: Nausea, Abdominal Pain, Vomiting - Allergy/Home Medications Allergies/Adverse Reactions: Allergies Allergy/AdvReac Type Severity Reaction Status Date / Time RENATE Inhibitors Allergy Unknown Verified 06/13/18 02:21 Reaction Details PMH/Surg Hx/FS Hx/Imm Hx Previously Healthy: No Endocrine/Hematology History: Reports: Hx Diabetes, Hx Thyroid Disease, Hx Anemia Denies: Hx Systemic Lupus Erythematosus Cardiovascular History: Reports: Hx Hypercholesterolemia, Hx Hypertension Denies: Hx Congestive Heart Failure, Hx Pacemaker/ICD Respiratory History: Reports: Hx Pneumonia GI History: Reports: Hx Ulcer - hX of, treated with meds 1997, no problems since , Other GI Disorders - original sight lymphoma abdomen History: Denies: Hx Dialysis, Hx Renal Disease Musculoskeletal History: Reports: Hx Arthritis, Hx Back Problems Denies: Hx Rheumatoid Arthritis, Hx Osteoporosis - UNKNOWN SPEAKS DUTCH ONLY Sensory History: Reports: Hx Contacts or Glasses Denies: Hx Hearing Aid Opthamlomology History: Reports: Hx Contacts or Glasses Neurological History: Reports: Hx Headaches, Hx Migraine - Hx of, none in long time Psychiatric History: Denies: Hx Panic Disorder - Cancer History Cancer Type, Location and Year: Breast CA 2004, Lymphoma 2010 Hx Chemotherapy: Yes Hx Radiation Therapy: Yes - Surgical History Surgery Procedure, Year, and Place: APPENDECTOMY,LEFT MASTECTOMY, growths removed from skin, Hx Anesthesia Reactions: No Infectious Disease History: No Infectious Disease History: Denies: Traveled Outside the [place] in Last 30 Days - Family History Known Family History: Negative: Other - negative adverse anesthesia reaction and malignant hyperthermia - Social History Occupation: Retired Lives: With Family Alcohol Use: None Hx Substance Use: No Substance Use Type: Reports: None Hx Tobacco Use: No Smoking Status (MU): Never Smoked Tobacco Have You Smoked in the Last Year: No Review of Systems Positive: Chest Pain Positive: Shortness Of Breath - secondary to CP Negative: Abdominal Pain, Nausea Positive: Other - pos: neck and head pain Neurological: Other - pos: dizziness All Other Systems Reviewed And Are Negative: Yes Physical Exam - Summary Physical Exam Summary: Appearance: Well-appearing, Well-nourished, lying in bed comfortably Skin: Warm, dry, no obvious rash Eyes: sclera anicteric, no conjunctival pallor ENT: mucous membranes moist, pharynx appears normal Neck: Supple, nontender Respiratory: Coarse crackles in R chest, no signs of respiratory distress Cardiovascular: Normal S1, S2. No murmurs. Normal distal pulses in tibial and radial bilaterally. Abdomen: Soft, nontender, normal active bowel sounds present Musculoskeletal: Normal, Strength/ROM Intact Neurological: A&Ox3, awake and alert, mentation is normal, speech is fluent and appropriate Psychiatric: affect is normal, does not appear anxious or depressed Triage Information Reviewed: Yes Vital Signs On Initial Exam: Initial Vitals Temp Pulse Resp BP Pulse Ox 97.8 F 76 18 142/74 93 06/13/18 02:18 06/13/18 02:18 06/13/18 02:18 06/13/18 02:18 06/13/18 02:18 Vital Signs Reviewed: Yes Diagnostics - Vital Signs Vital Signs Temp Pulse Resp BP Pulse Ox 06/13/18 02:18 97.8 F 76 18 142/74 93 - Laboratory Result Diagrams: 06/13/18 03:01 06/13/18 03:01 Lab Statement: Any lab studies that have been ordered have been reviewed, and results considered in the medical decision making process. - Radiology CXR Xray Interpretation: No Acute Changes Radiology Interpretation Completed By: ED Physician - CT Chest/Thorax CTA CT Interpretation: Positive (See Comments) CT Interpretation Completed By: Radiologist - EKG 0244 Cardiac Rate: NL - 70bpm EKG Rhythm: Sinus Rhythm EKG Interpretation: LBBB otherwise nml EKG EKG Comparison: No Significant Change - 01/03/2018 Re-Evaluation - Re-Evaluation 1 Re-Evaluation Time: 03:58 Change: Unchanged Comment: Discussing results and plans for CTA imaging with pt and son. Chest Pain Course/Dx - Diagnoses Provider Diagnoses: Chest pain - Provider Notifications Discussed Care Of Patient With: Heath Belle - hospitalist Time Discussed With Above Provider: 04:00 Instructed by Provider To: Admit As Inpatient Discharge - Sign-Out/Discharge Documenting (check all that apply): Patient Departure - ADM - Discharge Plan Condition: Fair Disposition: ADMITTED TO [facility] - Billing Disposition and Condition Condition: FAIR Disposition: Admitted to [facility]
[2018-06-13 03:12] LABS: ABS Basophils 0.1 10^3/ul (0-0.2); ABS Eosinophils 0.1 10^3/ul (0-0.6); ABS Lymphocytes 1.4 10^3/ul (1.0-4.8); ABS Monocytes 1.1 10^3/ul (0-0.8); ABS Neutrophils 6.6 10^3/ul (1.5-7.7); ABS Nucleated RBC 0 10^3/ul; Eosinophil % 0.9 % (0-6); Hematocrit 36 % (35-47); Hemoglobin 12.1 g/dl (12.0-16.0); Lymphocyte % 14.9 % (25-47); Mean Corpuscular HGB Conc 34 g/dl (31-36); Mean Corpuscular Hemoglobin 32 pg (27-31); Mean Corpuscular Volume 93 fL (80-97); Mean Platelet Volume 7.4 um3 (7.4-10.4); Nucleated Red Blood Cells % 0; Platelet Count 215 10^3/ul (150-450); Red Blood Count 3.84 10^6/ul (4.00-5.40); Red Cell Distribution Width 15 % (10.5-15); White Blood Count 9.2 10^3/ul (3.5-10.8)
[2018-06-13 03:29] LABS: EGFR Non-African American 34.9 (>60)
[2018-06-13] MEDS ORDERED: Morphine VIAL* 4 MG/ML VIAL (1 ml vial) IV ONE (03:58)
[2018-06-13] MEDS ORDERED: Morphine INJ* 2 MG/ML 1 ML SYRINGE (TWO MG - NEW SYRINGE VERSION) ONE ×2 (04:39→08:59)
[2018-06-13] MEDS ORDERED: Iodixanol 320 (CONTRAST) 100 ML SDV IV ONE (05:03)
[2018-06-13] MEDS ORDERED: Iodixanol* (CONTRAST) 320 MG/ML 100 ML SDV IV ONE (05:37)
[2018-06-13] MEDS ORDERED: Ibuprofen TAB* 600 MG PO PRN (07:52)
[2018-06-13] MEDS ORDERED: Acetaminophen TAB* 325 MG PO PRN (07:52)
[2018-06-13] MEDS ORDERED: Morphine INJ* 2 MG/ML 1 ML CARPUJECT IV PRN (07:53)
--- NOTE | 2018-06-13 07:59 | RAD ---
INDICATION: Chest pain. COMPARISON: Comparison is made with a prior chest x-ray study from January 03, 2018. TECHNIQUE: Dual-energy PA and lateral views of the chest were obtained. FINDINGS: The heart is within normal limits in size. Mediastinal and hilar contours appear within normal limits. The lungs are underinflated and grossly clear. No pleural effusion is seen. IMPRESSION: NO EVIDENCE FOR ACTIVE CARDIOPULMONARY DISEASE. R0
[2018-06-13] MEDS ORDERED: Levothyroxine TAB* 50 MCG TAB PO SCH (09:00)
[2018-06-13] MEDS ORDERED: Morphine INJ* 2 MG/ML 1 ML SYRINGE (TWO MG - NEW SYRINGE VERSION) IV PRN (09:04)
--- NOTE | 2018-06-13 09:08 | RAD ---
INDICATION: Pleuritic chest pain suspect pulmonary embolism. COMPARISON: Comparison is made with a prior chest x-ray study from June 13, 2018. Correlation is also made with a prior CT angiogram of the chest from February 17, 2016. TECHNIQUE: A CT angiogram of the chest was performed with intravenous following intravenous injection of 45 ml of Visipaque 320 nonionic contrast. Contiguous axial sections were obtained from the lung apices through the lung bases. Images were reconstructed in the coronal and sagittal planes. FINDINGS: There is suboptimal opacification of the pulmonary arteries and the study is nondiagnostic for pulmonary emboli. Recommend either repeat CT imaging or a ventilation/perfusion lung scan for further evaluation. The heart is within normal limits in size. There are coronary artery calcifications present. No pericardial effusion is present. There is mild ectasia of the thoracic aorta which demonstrates homogeneous contrast opacification. There is mild calcific plaque present. No significant enlarged mediastinal or hilar lymph nodes are seen. There are several small calcified mediastinal and bilateral hilar lymph nodes consistent with old granulomatous disease. There is mild dependent bilateral lower lobe subsegmental atelectasis. There is a 5 mm pulmonary nodule present in the right upper lobe which is unchanged from the prior study. There is a severe compression fracture of the L1 vertebral body which is unchanged from the prior study with slight retropulsion of fracture fragments into the anterior spinal canal also unchanged. IMPRESSION: 1. NONDIAGNOSTIC STUDY FOR PULMONARY EMBOLISM. RECOMMEND EITHER A REPEAT CT ANGIOGRAM OF THE CHEST OR A LUNG PERFUSION VENTILATION SCAN FOR FURTHER EVALUATION. 2. STABLE RIGHT UPPER LOBE PULMONARY NODULE AND FINDINGS CONSISTENT WITH OLD GRANULOMATOUS DISEASE. 3. MILD DEPENDENT BILATERAL LOWER LOBE SUBSEGMENTAL ATELECTASIS. 4. SEVERE COMPRESSION FRACTURE OF THE L1 VERTEBRAL BODY, UNCHANGED.
[2018-06-13] MEDS: Carvedilol TAB* 6.25 MG PO SCH ×2 (09:34→21:03)
[2018-06-13] MEDS: Omeprazole CAP* 20 MG PO SCH (09:34)
[2018-06-13] MEDS: Atorvastatin* 40 MG TAB PO SCH (09:34)
[2018-06-13] MEDS: PARoxetine HCL TAB* 10 MG PO SCH (09:34)
[2018-06-13] MEDS: Aspirin EC TAB* 81 MG TAB.EC PO SCH (09:35)
--- NOTE | 2018-06-13 11:36 | HP ---
CC: Dr. Merino HISTORY AND PHYSICAL: DATE OF ADMISSION: 06/13/18 TIME OF EVALUATION: 07:40 a.m. PRIMARY CARE PROVIDER: Dr. Merino CHIEF COMPLAINT: Chest pain. HISTORY OF PRESENT ILLNESS: Mrs. Meredith is an 83-year-old lady with a past medical history of hy pertension, hypothyroidism, non-Hodgkin's lymphoma, breast cancer, status post mastectomy, melanoma, diet-controlled diabetes, hyperlipidemia, hypertension, retina problems, peptic ulcer disease, who pr esents to the emergency room with complaints of chest pain. The patient does not speak Liberian and h er son, Joesph Meredith acts as supervisor telephone answering service. The patient went to [employer] yesterday for an apportionment for a left eye injection. On the way [place], she started to have right-sided chest pain that was worse with movement and deep inspiration rated 8/10 with no radiation. The patient got home, took some hydrocodone and the pain resolved, but later on the pain happened again and she took some ibuprofen with relief. The pain went down to 3/1 0, but later on it became worse again reason why she came to the emergency room for further evaluatio n. She states that she had minimal dry cough. The night before she had had some chills and malaise a nd she thought she was coming down with cold, but the next day in the morning she was feeling well. She denies shortness of breath, palpitations, vomiting, diarrhea, or urinary complaints. She did have some mild nausea, but did not vomit. She denies prior episodes of pain like this. She denies any other recent trip. No lower extremity pain or edema. PAST MEDICAL HISTORY: 1. Diet-controlled diabetes. 2. Hypothyroidism. 3. Hyperlipidemia. 4. Hypertension. 5. Peptic ulcer disease, treated in 1997. 6. Non-Hodgkin's lymphoma in 2011. 7. Left breast cancer, status post mastectomy in 2004. 8. Melanoma of her chest in 2003. 9. Status post appendectomy in the s. ALLERGIES: With RENATE INHIBITORS, the patient had a cough. MEDICATION LIST: 1. Aspirin 81 mg p.o. daily. 2. Paroxetine 10 mg p.o. daily. 3. Omeprazole 40 mg p.o. daily. 4. Levothyroxine 50 mcg p.o. daily. 5. Carvedilol 12.5 mg p.o. b.i.d. 6. Atorvastatin 40 mg p.o. daily. FAMILY HISTORY: There is no history of blood clots or heart disease. SOCIAL HISTORY: The patient denies alcohol or tobacco use. She has been living in the for more t [place] 10 years. Surrogate decision maker is her son, Joesph Meredith, phone number is [phone]. REVIEW OF SYSTEMS: A 14-point review of systems was performed and all the pertinent negatives and po sitive findings are in the HPI. PHYSICAL EXAMINATION GENERAL: The patient is a pleasant elderly lady that appears younger than stated age, lying in the E D stretcher, in no acute distress. VITAL SIGNS: Temperature 97.8, heart rate is 68, respiratory rate is 16, oxygen saturation is 94% on room air, blood pressure is 109/60, oxygen 95% on 2 L nasal cannula. CHEST: Breath sounds bilaterally with coarse crackles on the right. No other added sounds. The pat ient has mild pain on palpation of the anterior right chest wall, but she states the pain is not the same as when she takes the deep inspiration. CVS: Normal S1, S2. Regular rate and rhythm. No murmurs, no gallops. ABDOMEN: Soft, nontender. Bowel sounds present. EXTREMITIES: No edema. No calf tenderness. NEURO: She is alert and oriented x3. Able to move all 4 extremities. LABORATORY AND IMAGING DATA: The patient had a CBC that showed WBC of 9.2, hemoglobin of 12.1, sergio tocrit 36, platelets of 215 with 71% neutrophils. D-dimer was 986. Chemistry showed sodium 133, pot assium 4.8, chloride of 102, bicarbonate 25, BUN of 39, creatinine of 1.4, glucose of 161, calcium of 9.3. LFTs were normal. Troponin was 0.01 x2. An EKG done 06/13/18 at 02:44 a.m. showed sinus rhythm at 70 beats per minute with a left bundle-bran ch block and this is unchanged from her prior EKG from January 2018. Preliminary report of a CT of the chest was of to be optimal opacification noted of the pulmonary vasculature. Pulmonary embolus is n ot excluded. If there is continued clinical concern for pulmonary embolus, recommend repeat study or further evaluation with a V/Q scan. ASSESSMENT AND PLAN: Mrs. Meredith is an 83-year-old lady with a past medical history of diet-cont rolled diabetes, hypothyroidism, hyperlipidemia, hypertension, peptic ulcer disease, melanoma, breast cancer, status post mastectomy, non- Hodgkin's lymphoma, who presents to the emergency room with com plaints of chest pain. 1. Chest pain, rule out pulmonary embolism, rule out acute coronary syndrome. Patient does have risk factors for PE considering her history of multiple malignances. Her son showed me the name of the m edication used for her eye injection, it is called Eylea (aflibercept), this is a VEGF inhibitor and it carries a risk of thrombosis in 2% to 6% of the cases. He states that she had a similar injection a month ago with no issues and she was supposed to get a total of 3 injections. According to up-to- date, the risk of thromboembolic events may be increased following intravitreal administration of VEG F inhibitors including aflibercept. Unfortunately, the patient's CT of the chest was not good quality, so we are going to pursue a V/Q sc an and lower extremity Doppler. I am going to try to avoid giving her another dose of IV contrast as the patient also has CKD with a creatinine of 1.2 at baseline. If PE is ruled out, pleurisy could a lso be a cause as the patient has crackles on the right. She does have risk factors for cardiac dise ase, but her symptoms are atypical for it at this point. If her whole workup is negative, we may con quill reamer a cardiac workup. The patient will be admitted to telemetry and we are going to continue pain management. 2. Diet-controlled diabetes, it is not clear if the patient truly carries a diagnosis of diabetes. I am going to monitor her fingersticks and check hemoglobin A1c, but it does not look like she is goi ng to need coverage at this point. 3. Hypertension, it is controlled. We will continue carvedilol. 4. Hyperlipidemia, we will continue atorvastatin. 5. Hypothyroidism, we will check TSH and continue levothyroxine. 6. DVT prophylaxis: The patient has a score of 6 on the DVT Prophylaxis Risk Assessment Guide. She will receive subcutaneous heparin and if lower extremity Doppler is negative for DVT, we will add SC Ds. 7. Code status is full. TIME SPENT: Approximately 50 minutes was spent with the patient and son interview, medical records bharti medina, physical examination to complete the admission. More than half of this time was spent face-to -face with the patient and coordination of care. [id number]/[facility] #: [id number]
--- NOTE | 2018-06-13 11:43 | RAD ---
INDICATION: Chest pain evaluate for DVT. COMPARISON: Comparison is made with a prior study from March 11, 2018. TECHNIQUE: Multiple real-time, color flow and Doppler tracings of both lower extremities were obtained. FINDINGS: The common femoral, femoral, profunda femoral and popliteal veins all demonstrate normal compressibility, augmentation with compression and phasic response with respiration. The posterior tibial and peroneal veins demonstrate normal compressibility and augmentation with compression. IMPRESSION: NO EVIDENCE FOR DEEP VENOUS THROMBOSIS.
--- NOTE | 2018-06-13 12:22 | RAD ---
INDICATION: Pleuritic chest pain evaluate for pulmonary embolism. Comparison: Comparison is made with a prior chest x-ray study obtained earlier today. Technique: The patient was given 12.3 mCi of xenon-133 via a rebreathing mask. The lungs were imaged in both the anterior and posterior projections. Subsequently, the patient received 6.4 mCi of technetium 99 MAA intravenously and the lungs were imaged in 8 projections. FINDINGS: There is a small matched ventilation and perfusion defect present posteriorly at the left lung base. No other significant perfusion abnormalities are seen. The prior chest x-ray study demonstrates underinflated and grossly clear lungs without pleural effusion. IMPRESSION: LOW PROBABILITY FOR PULMONARY EMBOLISM.
[2018-06-13] MEDS: Heparin VIAL(*) 5000 UNITS/ML VIAL (FIVE THOUSAND) SUBCUT SCH ×2 (13:50→22:07)
[2018-06-14] MEDS: Heparin VIAL(*) 5000 UNITS/ML VIAL (FIVE THOUSAND) SUBCUT SCH ×3 (05:14→21:35)
[2018-06-14] MEDS: Levothyroxine TAB* 50 MCG TAB PO SCH (05:14)
[2018-06-14 06:08] LABS: ABS Basophils 0.1 10^3/ul (0-0.2); ABS Eosinophils 0.5 10^3/ul (0-0.6); ABS Lymphocytes 1.6 10^3/ul (1.0-4.8); ABS Monocytes 0.8 10^3/ul (0-0.8); ABS Neutrophils 4.8 10^3/ul (1.5-7.7); ABS Nucleated RBC 0 10^3/ul; Hematocrit 34 % (35-47); Hemoglobin 11.4 g/dl (12.0-16.0); Lymphocyte % 20.8 % (25-47); Mean Corpuscular HGB Conc 33 g/dl (31-36); Mean Corpuscular Hemoglobin 31 pg (27-31); Mean Corpuscular Volume 94 fL (80-97); Nucleated Red Blood Cells % 0; Platelet Count 199 10^3/ul (150-450); Red Blood Count 3.62 10^6/ul (4.00-5.40); Red Cell Distribution Width 15 % (10.5-15); White Blood Count 7.8 10^3/ul (3.5-10.8)
[2018-06-14 06:12] LABS: EGFR Non-African American 40.4 (>60)
[2018-06-14] MEDS: Atorvastatin* 40 MG TAB PO SCH (08:05)
[2018-06-14] MEDS: Aspirin EC TAB* 81 MG TAB.EC PO SCH (08:05)
[2018-06-14] MEDS: Carvedilol TAB* 6.25 MG PO SCH ×2 (08:05→20:59)
[2018-06-14] MEDS: PARoxetine HCL TAB* 10 MG PO SCH (08:05)
[2018-06-14] MEDS: Omeprazole CAP* 20 MG PO SCH (08:05)
--- NOTE | 2018-06-14 12:49 | RAD ---
INDICATION: Chest pain. COMPARISON: Comparison is made with a prior study from June 13, 2018. TECHNIQUE: A portable view of the chest was obtained. FINDINGS: Cardiac and mediastinal contours appear to be within normal limits. The lungs are underinflated. There is a small infiltrate at the left lung base. There is blunting of the left costophrenic angle consistent with pleural thickening or a trace pleural effusion. IMPRESSION: 1. LOW LUNG VOLUMES, SMALL LEFT BASILAR INFILTRATE. 2. BLUNTING OF THE LEFT COSTOPHRENIC ANGLE CONSISTENT WITH PLEURAL THICKENING OR TRACE PLEURAL EFFUSION, UNCHANGED.
--- NOTE | 2018-06-14 13:04 | ECHO ---
Patient: BELEN MACDONALD [facility] Rec#: [id number] : 1935 Date: 06/14/2018 Age: 83y Height: 152.4 cm / 60.0 in Weight: 73.48 kg / 161.9 lbs Sex: F BSA: 1.71 Room#: 439 Admit Date#: 06/13/2018 Type: Inpatient Referring: Christi Reynolds MD Reading: Deshawn Jaimes MD Ship Pilot: Patria Kapadia RDCS CC: BAUTISTA UNGER Transthoracic Echocardiogram Indication: Chest pain BP: 101/54 HR: 90 Rhythm: NSR Findings History: Diet controlled DM, hypothyroidism, HLD, HTN, non Hodgkin's lymphoma, L. breast cancer s/p mastectomy. Technical Comments: The study quality is fair. Completed at 1045. Left Ventricle: The left ventricular chamber size is normal. Mild concentric left ventricular hypertrophy is observed. There is a prominent septal knuckle. Left ventricular systolic function is at the lower limits of normal. The estimated ejection fraction is 50-55%. Abnormal left ventricular diastolic function is observed. Abnormal left ventricular diastolic filling is observed, consistent with impaired relaxation. The basal inferior, mid inferior, mid inferoseptal, apical septal, and apical inferior wall segments are hypokinetic (score 2). Overall wallmotion score index is 1.31 Left Atrium: The left atrium is mildly dilated. Right Ventricle: Moderator Band present. The right ventricle is slightly dilated. The right ventricular global systolic function is normal. Right Atrium: The right atrial cavity size is normal. Aortic Valve: The aortic valve leaflets are mildly thickened. There is a trace of aortic regurgitation. There is no evidence of aortic stenosis. Mitral Valve: There is posterior mitral annular calcification. The mitral valve leaflets are mildly thickened. There is mild mitral regurgitation. There is no evidence of mitral stenosis. Tricuspid Valve: The tricuspid valve leaflets are normal. There is mild tricuspid regurgitation. The tricuspid regurgitant jet is eccentric. Unable to estimate the right ventricular systolic pressure. There is no tricuspid stenosis. Pulmonic Valve: The pulmonic valve appears normal. There is trace to mild pulmonic regurgitation. There is no pulmonic stenosis. Pericardium: There is no significant pericardial effusion. Aorta: There is no dilatation of the ascending aorta. There is no dilatation of the aortic arch. The aortic root is normal in size. Pulmonary Artery: The main pulmonary artery appears normal. Venous: The inferior vena cava is dilated. There is a greater than 50% respiratory change in the inferior vena cava dimension. Conclusions Mild concentric left ventricular hypertrophy is observed. There is a prominent septal knuckle. Left ventricular systolic function is at the lower limits of normal. The estimated ejection fraction is 50-55%. There is a left ventricular septal wall motion abnormality observed, possibly due to the presence of a bundle branch block. Abnormal left ventricular diastolic filling is observed, consistent with impaired relaxation. The left atrium is mildly dilated. The right ventricular global systolic function is normal. The right ventricle is slightly dilated. There is mild mitral regurgitation. There is posterior mitral annular calcification. There is mild tricuspid regurgitation. Similar to 2011 except that the relative inferior hypokinesis was not mentioned. Measurements Name Value Normal Range RVIDd (AP) 2D 3.7 cm (0.9 - 2.6) RVDdMajor (2D) 4.4 cm (2.2 - 4.4) RAd ISD 4CH 4.1 cm (3.4 - 4.9) RA (A4C)W 4 cm (2.9 - 4.6) IVSd (2D) 1.3 cm (0.6 - 1) LVPWd (2D) 1.1 cm (0.6 - 1) LVIDd (2D) 4.2 cm (3.6 - 5.4) LVIDs (2D) 2.9 cm - LV FS (2D) 30 % (25 - 45) Aortic Annulus 1.8 cm (1.4 - 2.6) Ao root diameter (2D) 3.4 cm (2.1 - 3.5) Ascending Ao 3.4 cm (2.1 - 3.4) Aortic arch 2.3 cm (1.8 - 3.4) LA dimension (AP) 2D 4.7 cm (2.3 - 3.8) LAd ISD 4CH 5.6 cm (2.9 - 5.3) LA ISD 4CH W 4.4 cm (2.5 - 4.5) Name Value Normal Range LA ESV SP 4CH (A/L) 75 ml - LA ESV SP 2CH (A/L) 54 ml - LA ESV BP (A/L) 66 ml - LA ESV BP (A/L) index 39 ml/m2 - LA ESV SP 4CH (MOD) 71 ml - LA ESV SP 2CH (MOD) 53 ml - Name Value Normal Range MV E-wave Vmax 0.63 m/sec - MV deceleration time 246.1 msec - MV A-wave Vmax 0.95 m/sec - MV E:A ratio 0.66 ratio - LV septal e' Vmax 0.05 m/sec - LV lateral e' Vmax 0.04 m/sec - LV E:e' septal ratio 12.6 ratio - LV E:e' lateral ratio 15.75 ratio - Name Value Normal Range AV Vmax 1.49 m/sec - AV VTI 30.2 cm - AV peak gradient 8.9 mmHg - AV mean gradient 4 mmHg - LVOT Vmax 1.22 m/sec - LVOT VTI 26.2 cm - LVOT peak gradient 6 mmHg - LVOT mean gradient 3.32 mmHg - YU Vmax 1.5 m/sec - Name Value Normal Range IVC diameter 2.2 cm - Name Value Normal Range PV Vmax 1.06 m/sec - PV peak gradient 4.55 mmHg - Wallmotion BAS Normal BA Normal BAL Normal SHWETHA Normal BI Hypokinetic BIS Normal MAS Normal MA Normal MAL Normal MIL Normal NE Hypokinetic MIS Hypokinetic Hypokinetic AA Normal AL Normal AI Hypokinetic APEX Normal
--- NOTE | 2018-06-14 15:27 | PN ---
Subjective Date of Service: 06/14/18 Interval History: Still notes occasional chest pain, but associates it mostly with deep inspiration. No shortness of breath, no cough, no fevers. Has walked around without symptoms. Her son Jewel translates for me via speakerphone ). Objective Active Medications: Acetaminophen (Tylenol Tab*) 650 mg PO Q6H PRN PRN Reason: pain/fever Aspirin (Aspirin Ec Tab*) 81 mg PO DAILY [facility] Last Admin: 06/14/18 08:05 Dose: 81 mg Atorvastatin Calcium (Lipitor*) 40 mg PO DAILY [facility] Last Admin: 06/14/18 08:05 Dose: 40 mg Carvedilol (Coreg Tab*) 12.5 mg PO BID [facility] Last Admin: 06/14/18 08:05 Dose: 12.5 mg Heparin Sodium (Porcine) (Heparin Vial(*)) 5,000 units SUBCUT Q8HR [facility] Last Admin: 06/14/18 13:17 Dose: 5,000 units Ibuprofen (Motrin Tab*) 600 mg PO Q6H PRN PRN Reason: PAIN Levothyroxine Sodium (Synthroid Tab*) 50 mcg PO DAILY@0600 [facility] Last Admin: 06/14/18 05:14 Dose: 50 mcg Morphine Sulfate (Morphine Inj ((Syringe))*) 2 mg IV Q4H PRN PRN Reason: SEVERE PAIN Omeprazole (Prilosec Cap*) 40 mg PO DAILY@0730 [facility] Last Admin: 06/14/18 08:05 Dose: 40 mg Paroxetine HCl (Paxil Tab*) 10 mg PO DAILY [facility] Last Admin: 06/14/18 08:05 Dose: 10 mg Vital Signs - 8 hr 06/14/18 06/14/18 06/14/18 07:32 07:47 12:45 Temperature 98.0 F 98.0 F Pulse Rate 62 62 Respiratory 18 16 20 Rate Blood Pressure 111/58 108/60 (mmHg) O2 Sat by Pulse 91 93 Oximetry Oxygen Devices in Use Now: None Appearance: alert, pleasant, well appearing Eyes: No Scleral Icterus Ears/Nose/Mouth/Throat: NL Teeth, Lips, Gums Neck: NL Appearance and Movements; NL JVP Respiratory: Symmetrical Chest Expansion and Respiratory Effort, - - dry crackles in left base Cardiovascular: NL Sounds; No Murmurs; No JVD, RRR, - - no rub Abdominal: NL Sounds; No Tenderness; No Distention Lymphatic: No Cervical Adenopathy Extremities: No Edema Skin: No Rash or Ulcers Neurological: Alert and Oriented x 3 Result Diagrams: 06/14/18 05:30 06/14/18 05:30 Assess/Plan/Problems-Billing Assessment: - Patient Problems (1) Chest pain Current Visit: Yes Status: Acute Code(s): R07.9 - CHEST PAIN, UNSPECIFIED SNOMED Code(s): 87811060 Comment: Her pain is not anginal, but she does have cardiac risk factors, her son tells me she had a positive LHC two years ago, and her TTE from today shows multiple regional wall motion abnormalities Based on these findings, a stress test is warranted She does not want to do a nuclear stress and wants to attempt an exercise ACS ruled out, PE ruled out, dissection ruled out add on ESR, CRP today (2) Coronary artery disease Current Visit: Yes Status: Acute Code(s): I25.10 - ATHSCL HEART DISEASE OF [place] CORONARY ARTERY W/O ANG PCTRS SNOMED Code(s): 88432244 Comment: her son revealed to me today that she had an admission for "ischemia " to [place] and that she had a LHC two years ago that had "some disease" I am awaiting records from [place] (3) History of melanoma Current Visit: Yes Status: Acute Code(s): Z85.820 - PERSONAL HISTORY OF MALIGNANT MELANOMA OF SKIN SNOMED Code(s): 293887572 (4) History of breast cancer Current Visit: Yes Status: Acute Code(s): Z85.3 - PERSONAL HISTORY OF MALIGNANT NEOPLASM OF BREAST SNOMED Code(s): 085789158
[2018-06-14] MEDS ORDERED: Metoprolol Tartrate IV* 1 MG/ML 5 ML VIAL IV PRN (22:28)
--- NOTE | 2018-06-14 22:30 | PN ---
Progress Note - Progress Note Date of Service: 06/14/18 Note: Paged - Patient c/o tachycardia. EKG shows what appears to be rapid atrial fibrillation with LBBB (not new) No chest pain. Will try Lopressor 5 mg IV now Add on magnesium from this morning and F/U accordingly Patient responded to Lopressor but HR went right back up to the 120's. Will give diltiazem bolus and start drip at 5 mg/hr
[2018-06-14] MEDS ORDERED: Diltiazem IV VIAL* 5 MG/ML 10 ML VIAL IV SLOW PU ONE (23:03)
[2018-06-14] MEDS ORDERED: Diltiazem IV* 5 MG/ML 5 ML VIAL (for loading dose/IV Push) (25 MG) IV SLOW PU ONE (23:45)
[2018-06-14] MEDS ORDERED: Diltiazem DRIP* 100 MG/100 ML ADDV.BAG IVPB SCH (23:45)
[2018-06-15 05:49] LABS: ABS Basophils 0.1 10^3/ul (0-0.2); ABS Eosinophils 0.5 10^3/ul (0-0.6); ABS Monocytes 0.7 10^3/ul (0-0.8); ABS Neutrophils 3.9 10^3/ul (1.5-7.7); ABS Nucleated RBC 0 10^3/ul; Eosinophil % 7.2 % (0-6); Hematocrit 34 % (35-47); Hemoglobin 11.5 g/dl (12.0-16.0); Lymphocyte % 27.8 % (25-47); Mean Corpuscular HGB Conc 34 g/dl (31-36); Mean Corpuscular Hemoglobin 31 pg (27-31); Mean Corpuscular Volume 93 fL (80-97); Mean Platelet Volume 7.6 um3 (7.4-10.4); Nucleated Red Blood Cells % 0; Platelet Count 229 10^3/ul (150-450); Red Blood Count 3.65 10^6/ul (4.00-5.40); Red Cell Distribution Width 15 % (10.5-15); White Blood Count 7.2 10^3/ul (3.5-10.8)
[2018-06-15] MEDS: Heparin VIAL(*) 5000 UNITS/ML VIAL (FIVE THOUSAND) SUBCUT SCH ×3 (05:49→21:49)
[2018-06-15] MEDS: Levothyroxine TAB* 50 MCG TAB PO SCH (05:49)
[2018-06-15 06:04] LABS: EGFR Non-African American 39.7 (>60)
[2018-06-15] MEDS: Omeprazole CAP* 20 MG PO SCH (08:50)
[2018-06-15] MEDS: PARoxetine HCL TAB* 10 MG PO SCH (08:50)
[2018-06-15] MEDS: Atorvastatin* 40 MG TAB PO SCH (08:50)
[2018-06-15] MEDS: Aspirin EC TAB* 81 MG TAB.EC PO SCH (08:51)
[2018-06-15] MEDS: Carvedilol TAB* 6.25 MG PO SCH ×2 (08:56→21:50)
--- NOTE | 2018-06-15 09:32 | PN ---
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 She thinks she has a cold with dry cough and fatigue. She denies any further CP. No fevers, chills or body aches. No sputum production. Denies hematuria, dysuria or increased urinary frequency Objective Active Medications: Acetaminophen (Tylenol Tab*) 650 mg PO Q6H PRN PRN Reason: pain/fever Aspirin (Aspirin Ec Tab*) 81 mg PO DAILY [facility] Last Admin: 06/15/18 08:51 Dose: 81 mg Atorvastatin Calcium (Lipitor*) 40 mg PO DAILY [facility] Last Admin: 06/15/18 08:50 Dose: 40 mg Carvedilol (Coreg Tab*) 12.5 mg PO BID [facility] Last Admin: 06/15/18 08:56 Dose: Not Given Heparin Sodium (Porcine) (Heparin Vial(*)) 5,000 units SUBCUT Q8HR [facility] Last Admin: 06/15/18 05:49 Dose: 5,000 units Ibuprofen (Motrin Tab*) 600 mg PO Q6H PRN PRN Reason: PAIN Levothyroxine Sodium (Synthroid Tab*) 50 mcg PO DAILY@0600 [facility] Last Admin: 06/15/18 05:49 Dose: 50 mcg Metoprolol Tartrate (Lopressor Iv*) 5 mg IV Q6H PRN PRN Reason: BLOOD PRESSURE Last Admin: 06/14/18 22:39 Dose: 5 mg Morphine Sulfate (Morphine Inj ((Syringe))*) 2 mg IV Q4H PRN PRN Reason: SEVERE PAIN Omeprazole (Prilosec Cap*) 40 mg PO DAILY@0730 [facility] Last Admin: 06/15/18 08:50 Dose: 40 mg Paroxetine HCl (Paxil Tab*) 10 mg PO DAILY [facility] Last Admin: 06/15/18 08:50 Dose: 10 mg Vital Signs - 8 hr 06/15/18 06/15/18 06/15/18 01:50 02:00 02:20 Temperature Pulse Rate 59 59 63 Respiratory Rate Blood Pressure 114/63 103/62 (mmHg) O2 Sat by Pulse 95 95 96 Oximetry 06/15/18 06/15/18 06/15/18 02:48 02:51 03:00 Temperature Pulse Rate 57 56 59 Respiratory Rate Blood Pressure 106/58 104/55 (mmHg) O2 Sat by Pulse 94 94 95 Oximetry 06/15/18 06/15/18 06/15/18 03:37 03:51 04:00 Temperature 98.4 F Pulse Rate 63 60 60 Respiratory 20 Rate Blood Pressure 105/64 (mmHg) O2 Sat by Pulse 97 97 97 Oximetry 06/15/18 06/15/18 06/15/18 04:51 05:00 05:51 Temperature Pulse Rate 60 60 60 Respiratory Rate Blood Pressure 107/64 121/96 (mmHg) O2 Sat by Pulse 95 90 94 Oximetry 06/15/18 06/15/18 06/15/18 06:00 06:51 06:54 Temperature Pulse Rate 58 Respiratory Rate Blood Pressure 115/63 114/66 (mmHg) O2 Sat by Pulse 94 Oximetry 06/15/18 06/15/18 07:00 08:00 Temperature Pulse Rate 57 62 Respiratory Rate Blood Pressure (mmHg) O2 Sat by Pulse 94 94 Oximetry Oxygen Devices in Use Now: Nasal Cannula Appearance: well developed 83 yo female sitting in bed A+Ox3 in NAD Eyes: No Scleral Icterus, PERRLA Ears/Nose/Mouth/Throat: NL Teeth, Lips, Gums, Mucous Membranes Moist Neck: NL Appearance and Movements; NL JVP Respiratory: Symmetrical Chest Expansion and Respiratory Effort, Clear to Auscultation, - - right LL rhonchi that clear with cough - no wheezing noted Cardiovascular: NL Sounds; No Murmurs; No JVD, RRR, No Edema Abdominal: NL Sounds; No Tenderness; No Distention, - - no pubrapubic/CVA tenderness Skin: No Rash or Ulcers, No Nodules or Sclerosis Neurological: Alert and Oriented x 3, NL Sensation, NL Muscle Strength and Tone Lines/Tubes/Other Access: Clean, Dry and Intact Peripheral IV Nutrition: Taking PO's Result Diagrams: 06/15/18 05:39 06/15/18 05:39 Assess/Plan/Problems-Billing Assessment: Mrs. Meredith is a 83 yo female with a PMH of CAD, PVD, HTN, hypothyroidism, non-Hodkins lymphoma, breast cancer s/p mastectomy, melenoma, diet-controlled DM, HLD, HTN, PUD, hx of afib on ASA only d/y GI bleed who presented to the ER on 06/13 with c/o CP - she developed CP after a procedure of an eye injection. - Patient Problems (1) Chest pain Comment: Her pain doesnt appear anginal, but she does have cardiac risk factors , her son tells me she had a positive LHC two years ago, and her TTE from 06/14 shows multiple regional wall motion abnormalities but does have a noted LBBB. Based on these findings, a stress test is warranted - exercise stress or stress echo will not show accurate picture d/t LBBB... there was confusion that the pt refused nuclear stress test but in discussion with son and pt - pt agrees at this time for nuclear stress at this time stating she was confused d/t language barrier. Troponins are flat. Records were revieved from [place] and reviewed today - She has known disease per left heart cath in 2016 showing 40-50% stenosis in the second obtuse marginal branch that did not appear to be flow limited, recommendation was for medical management only. ACS ruled out, PE ruled out, dissection ruled out (2) Coronary artery disease Comment: her son revealed that she had an admission for "ischemia" to [place] and that she had a LHC two years ago that had "some disease" [place] cardiac cath 01/2016 left heart cath only - showing nonobstructive CAD of the left heart, normal LV end-diastolic pressure, no significant gradient acroos aortic valve. (3) Elevated C-reactive protein (CRP) Comment: Unclear etiology trending down - possibly secondary to eye injection vs URI or other infectious process. CTA showing atelectasis Send urinalysis and blood cx. Possible infecticous processes but will hold off on antibiotics. No fevers, no leukocytosis, clinically doing well. (4) Afib Comment: - Hx of continue Coreg ASA only - hx of GI bleed. (5) Hypothyroid Comment: TSH noted to be high - pt reports recent change in medication - Continue current dose of synthroid and f/u with PCP (6) History of breast cancer (7) CKD (chronic kidney disease) Comment: appears to be at baseline (8) DVT prophylaxis Comment: HSQ Status and Disposition: inpatient. Plan for DC to home when medically stable
[2018-06-16] MEDS: Levothyroxine TAB* 50 MCG TAB PO SCH (05:54)
[2018-06-16] MEDS: Heparin VIAL(*) 5000 UNITS/ML VIAL (FIVE THOUSAND) SUBCUT SCH ×2 (05:55→14:06)
[2018-06-16 06:05] LABS: ABS Basophils 0.1 10^3/ul (0-0.2); ABS Eosinophils 0.6 10^3/ul (0-0.6); ABS Monocytes 0.7 10^3/ul (0-0.8); ABS Neutrophils 4.2 10^3/ul (1.5-7.7); ABS Nucleated RBC 0 10^3/ul; Eosinophil % 7.7 % (0-6); Hematocrit 38 % (35-47); Hemoglobin 12.6 g/dl (12.0-16.0); Lymphocyte % 26.3 % (25-47); Mean Corpuscular HGB Conc 34 g/dl (31-36); Mean Corpuscular Hemoglobin 32 pg (27-31); Mean Corpuscular Volume 94 fL (80-97); Mean Platelet Volume 7.6 um3 (7.4-10.4); Nucleated Red Blood Cells % 0; Platelet Count 270 10^3/ul (150-450); Red Cell Distribution Width 15 % (10.5-15); White Blood Count 7.6 10^3/ul (3.5-10.8)
[2018-06-16 06:25] LABS: EGFR Non-African American 39.7 (>60)
--- NOTE | 2018-06-16 08:03 | PN ---
Subjective Date of Service: 06/16/18 Interval History: Initially saw patient and she had recently underwent the cardiac nuclear stress test w/o difficulty. She reported she felt well today and hoped to go home. per nursing staff she has been up on her feet this morning to the bathroom w/o difficulty. Approx 30 mins later the nurse then noted that her HR was around 38 on the tele monitor - I went to check on the patient and she was sitting on the toilet - she reported she felt funny and noted her HR was low with some chest discomfort. EEC strips showing possible 2nd block HR 30's - HR quickly come back up to the 60's, then appeared to be in an SVT. Pt reported she felt funny noting some palpitations and chest discomfort. Now resting in bed feeling okay. Updated son Eleni who reports she has a hx of afib (he thinks) but then states it could be a tachycardia of some sort. He is not aware of her having a low HR before in the past but does report his mother has reported her pulse seemed low by taking her own pulse. Objective Active Medications: Acetaminophen (Tylenol Tab*) 650 mg PO Q6H PRN PRN Reason: pain/fever Aspirin (Aspirin Ec Tab*) 81 mg PO DAILY [facility] Last Admin: 06/15/18 08:51 Dose: 81 mg Atorvastatin Calcium (Lipitor*) 40 mg PO DAILY [facility] Last Admin: 06/15/18 08:50 Dose: 40 mg Carvedilol (Coreg Tab*) 12.5 mg PO BID [facility] Last Admin: 06/15/18 21:50 Dose: 12.5 mg Heparin Sodium (Porcine) (Heparin Vial(*)) 5,000 units SUBCUT Q8HR [facility] Last Admin: 06/16/18 05:55 Dose: 5,000 units Ibuprofen (Motrin Tab*) 600 mg PO Q6H PRN PRN Reason: PAIN Levothyroxine Sodium (Synthroid Tab*) 50 mcg PO DAILY@0600 [facility] Last Admin: 06/16/18 05:54 Dose: 50 mcg Metoprolol Tartrate (Lopressor Iv*) 5 mg IV Q6H PRN PRN Reason: BLOOD PRESSURE Last Admin: 06/14/18 22:39 Dose: 5 mg Morphine Sulfate (Morphine Inj ((Syringe))*) 2 mg IV Q4H PRN PRN Reason: SEVERE PAIN Omeprazole (Prilosec Cap*) 40 mg PO DAILY@0730 [facility] Last Admin: 06/15/18 08:50 Dose: 40 mg Paroxetine HCl (Paxil Tab*) 10 mg PO DAILY [facility] Last Admin: 06/15/18 08:50 Dose: 10 mg Vital Signs - 8 hr 06/16/18 03:19 Temperature 98.2 F Pulse Rate 69 Respiratory 16 Rate Blood Pressure 139/68 (mmHg) O2 Sat by Pulse 94 Oximetry Oxygen Devices in Use Now: None Appearance: well developed 83 yo female sitting up in bed in NAD. A+O x3 Eyes: No Scleral Icterus, PERRLA Ears/Nose/Mouth/Throat: NL Teeth, Lips, Gums, Mucous Membranes Moist Neck: NL Appearance and Movements; NL JVP Respiratory: Symmetrical Chest Expansion and Respiratory Effort, Clear to Auscultation Cardiovascular: NL Sounds; No Murmurs; No JVD, RRR, No Edema Abdominal: NL Sounds; No Tenderness; No Distention Extremities: No Edema, No Clubbing, Cyanosis Skin: No Rash or Ulcers, No Nodules or Sclerosis Neurological: Alert and Oriented x 3, NL Sensation, NL Gait, NL Muscle Strength and Tone Lines/Tubes/Other Access: Clean, Dry and Intact Peripheral IV Nutrition: Taking PO's Result Diagrams: 06/16/18 05:42 06/16/18 05:42 Assess/Plan/Problems-Billing Assessment: Mrs. Meredith is a 83 yo female with a PMH of CAD, PVD, HTN, hypothyroidism, non-Hodkins lymphoma, breast cancer s/p mastectomy, melenoma, diet-controlled DM, HLD, HTN, PUD, hx of afib on ASA only d/y GI bleed who presented to the ER on 06/13 with c/o CP - she developed CP after a procedure of an eye injection. - Patient Problems (1) Chest pain Comment: Unclear etiology - she seemed to have some chest discomfort when she had the geovanna-tachy episode today. Have asked Dr. Brooks to consult Cardiac Nuclear Stress test - low risk Records were revieved from [place] and reviewed today - She has known disease per left heart cath in 2016 showing 40-50% stenosis in the second obtuse marginal branch that did not appear to be flow limited, recommendation was for medical management only. ACS ruled out, PE ruled out, dissection ruled out (2) Bradycardia Comment: - Tachy-geovanna? - Awaiting Dr. Roman input. It is possible the nuclear med contrast can cause bradycardia. (3) Coronary artery disease Comment: [place] cardiac cath 01/2016 left heart cath only - showing nonobstructive CAD of the left heart, normal LV end-diastolic pressure, no significant gradient across aortic valve. (4) Elevated C-reactive protein (CRP) Comment: Unclear etiology - feels like maybe she has a mild cold trending down - possibly secondary to eye injection vs URI - no noted infectious process. Urinalysis negative, blood cx NTD, CT chest negative, normal procalcitonin. No fevers, no leukocytosis, clinically doing well. (5) Afib Comment: - had an epsidoe of afib with rvr on 06/14 and was started on a cardizem gtt overnight and she converted continue Coreg ASA only - hx of GI bleed. (6) Hypothyroid Comment: TSH noted to be high - pt reports recent change in medication - Continue current dose of synthroid and f/u with PCP (7) History of breast cancer (8) CKD (chronic kidney disease) Comment: appears to be at baseline (9) DVT prophylaxis Comment: HSQ Status and Disposition: inpatient. Plan for DC to home when medically stable
[2018-06-16] MEDS ORDERED: Aminophylline IV* 25 MG/ML 10 ML VIAL ONE (08:11)
[2018-06-16] MEDS ORDERED: Regadenoson* 0.4 MG/5 ML SYRINGE ONE (08:11)
[2018-06-16] MEDS ORDERED: Aminophylline IV* 25 MG/ML 10 ML VIAL IV ONE (10:00)
--- NOTE | 2018-06-16 10:58 | RAD ---
Edited for charges. INDICATION: Chest pain. Diabetes, hypertension, elevated cholesterol, LEFT bundle branch block. COMPARISON: September 10, 2011 TECHNIQUE: 10.340 mCi of Tc-99m Myoview were administered IV. SPECT images of the heart were obtained. Later on the same day. Under the direction of Dr. Brooks, the patient was given an IV injection of a pharmacologic stress agent. Subsequently, the patient was given an IV injection of 25.320 mCi Tc-99m Myoview. SPECT images of the heart were obtained and a gated wall motion study was performed. FINDINGS: Gated wall motion images were obtained at stress and demonstrate hypokinesia at the septum and inferior wall. The calculated left ventricular ejection fraction is 64 % at stress. Estimated LEFT ventricular end diastolic volume is 69 mL. TID 0.91. Significant diaphragmatic attenuation on the nonattenuation corrected series. There is fixed decreased perfusion at the septum from the apex to the base. Fixed thinning of the apex. No stress-induced reversible LEFT ventricular myocardial perfusion defect to favor ischemia. IMPRESSION: #. Fixed decreased perfusion at the septum is nonspecific in setting of LEFT bundle branch block. #. No compelling evidence for stress-induced ischemia. #. Hypokinesia at the septum and inferior wall. Estimated LEFT ventricular ejection fraction remains within normal limits. ASSESSMENT: Low risk based on nuclear portion. Based on imaging criteria from ACC/AHA 2002 Guideline Update for the Management of Patients With Chronic Stable Angina Table 23. Noninvasive Risk Stratification. MTDD
[2018-06-16] MEDS: Omeprazole CAP* 20 MG PO SCH (11:31)
[2018-06-16] MEDS: PARoxetine HCL TAB* 10 MG PO SCH (11:32)
[2018-06-16] MEDS: Aspirin EC TAB* 81 MG TAB.EC PO SCH (11:32)
[2018-06-16] MEDS: Atorvastatin* 40 MG TAB PO SCH (11:32)
[2018-06-16] MEDS: Carvedilol TAB* 6.25 MG PO SCH (11:34)
[2018-06-16 13:49] LABS: Urine Appearance Clear; Urine Blood Negative (Negative); Urine Color Yellow; Urine Ketones Negative (Negative); Urine Protein Negative (Negative); Urine Specific Gravity 1.013 (1.010-1.030); Urine Urobilinogen Negative (Negative)
[2018-06-16 15:42] VITALS: BP 140/70
--- NOTE | 2018-06-16 21:16 | CONS ---
CC: Dr. Merino; Dr. Harry at [facility] CARDIOLOGY CONSULTATION: DATE OF CONSULT: 06/16/18 INDICATION FOR CONSULTATION: Chest pain, tachybrady syndrome. HISTORY OF PRESENT ILLNESS: The patient is an 83-year-old female with a history of lymphoma, history of hypothyroidism, history of tachycardia, who was admitted to the hospital with chest pain. The pa piero states that she was driving home form [place] on Friday when she started complaining of ches t pain and feeling poorly. She was brought to the emergency room, at that time she was having 3/10 ch est pain. The patient was ruled out for myocardial infarction. During her hospitalization, the patie nt underwent a VQ scan, a CTA of the chest, a stress test, and an echocardiogram, all of which were e ssentially unremarkable. The patient's telemetry has shown moderate tachybrady syndrome. At times, she has bradycardia with l ocked PACs with an effective heart rate of 30 beats per minute. Other times, she has runs of SVT at a 130 beats per minute that last 10 to 12 beats in a row. In general, the patient is more symptomatic from the episodes of bradycardia. She feels lightheaded and uncomfortable when she has the episodes of bradycardia. The patient denies any syncope. She denies any orthopnea. PAST MEDICAL HISTORY: Significant for diabetes, hypothyroidism, hyperlipidemia, peptic ulcer disease , non-Hodgkin's lymphoma, breast cancer. MEDICATIONS: Outpatient medications: 1. Aspirin 81 mg a day. 2. Paroxetine 10 mg a day. 3. Omeprazole 40 mg a day. 4. Levothyroxine 50 mcg a day. 5. Coreg 12.5 mg b.i.d. 6. Atorvastatin 40 mg a day. ALLERGIES: To RENATE INHIBITORS. FAMILY HISTORY: History of blood clots. SOCIAL HISTORY: She is a retired anesthesiologist. She is . Her son takes care of her. She denies tobacco or alcohol use. PHYSICAL EXAM: Height is 5 feet, weight is 162 pounds, heart rate 62, blood pressure 140/70, tempera ture 98.3, respiratory rate is 16, oxygen saturation 95% on room air. Sclerae anicteric. Oropharynx is pink without erythema. Carotids are 2+ without bruits. JVD is normal. Thyroid is normal. Card iac Exam: S1, S2 without any murmurs, rubs, or gallops. Lungs are clear to auscultation bilaterally . There is no dullness to percussion. Abdomen is soft, nontender, nondistended with normoactive bow el sounds. Extremities show no edema. She has 2+ pulses throughout. The patient is awake, alert, a nd oriented. She moves all 4 extremities equally. DIAGNOSTIC STUDIES/LAB DATA: CBC within normal limits. Chemistries within normal limits. BUN 35, c reatinine 1.2, which is at her baseline. AST and ALT are normal. Troponins were negative x3. TSH 7. 1. C-reactive protein 176. Her stress test shows normal perfusion throughout her myocardium. Her echocardiogram shows low normal LV systolic function, ejection fraction of 50% to 55% with mild i nferior wall hypokinesis. No significant valvular abnormality. IMPRESSION AND PLAN: An 83-year-old female was admitted to the hospital with chest pain. She has junior d an extensive workup including a CTA of her chest, VQ scan, echocardiogram, and stress test, all of which were essentially unremarkable. The patient clearly had some moderate degree of tachybrady syndrome. At this point, the patient is s ymptomatic from her episodes of bradycardia. I think it would be reasonable to place the pacemaker t o maximize medical therapy and to prevent some of her symptoms. At this point, the patient is not in terested in a pacemaker. The patient was considering having a lower dose of beta-benji given the f act that she is more symptomatic from her bradycardic episodes. I think this is reasonable. The marleny auguste will be seen in followup either by myself or Dr. Harry. She will need an outpatient Holter monitor at some point for further evaluation. This was discussed with Max Solis, nurse practitioner. The patient's son was available during the consultation to translate. [id number]/[facility] #: [id number]
--- NOTE | 2018-06-18 03:28 | DS ---
CC: Dr. Merino; Dr. Harry* DISCHARGE SUMMARY: DATE OF ADMISSION: 06/13/18 DATE OF DISCHARGE: 06/16/18 PROVIDER: Ratna Moulton NP ATTENDING PHYSICIAN: Dr. Yadav* (report dictated by Ratna Moulton NP). PRIMARY CARE PROVIDER: Dr. Merino. AUTOMOTIVE SHOP FOREMAN: Dr. Harry. DISCHARGE DIAGNOSES: 1. Chest pain. 2. Tachybrady syndrome. SECONDARY DIAGNOSES: 1. History of coronary artery disease. 2. Diet-controlled diabetes. 3. Hypothyroidism. 4. Hyperlipidemia. 5. Hypertension. 6. Peptic ulcer disease, treated in 1997. 7. Non-Hodgkin's lymphoma in 2011. 8. Left breast cancer, status post mastectomy in 2004. 9. Melanoma of her chest in 2003. HISTORY OF PRESENT ILLNESS AND HOSPITAL COURSE: Please see history and physical by Dr. Alvarez for full admission details; but, in summary, this is an 83-year-old female with a past medical history as stated above, who presented to the emergency department on 06/13/18 for complaint of chest pain. The patient speaks very little Croatian and her primary language is Bahamian. Her son , Preston, has been available and present throughout the hospitalization process. It was reported that the patient the day prior went for a left eye injection and on the way home, she started to have right-sided chest pain, which was worse with movement and deep inspiration rating 8/10 with no radiation. The patient returned home, took a hydrocodone and the pain resolved , but later returned again and she took some ibuprofen with some relief. She reported the pain went to down to a 3/10, but later became worse again and reported in the night, she had some chills and malaise and felt that she was coming down with a cold, but the next morning she woke up feeling well. She presented to the emergency department for evaluation of her chest pain. She was admitted to the hospitalist service to the telemetry unit. She had 3 flat troponins and no EKG changes. She underwent a CT angiogram of the chest, which was not good quality, so a lung V/Q scan was performed, which was low probability for pulmonary embolism. The patient underwent a chemical nuclear stress test, which placed her at low risk. It was then thought it was possible that she had a viral illness and she felt that she had a cold with a mild dry cough with malaise. Pneumonia was ruled out. The patient was doing well on and the plan was for discharge home, thought to be that this was secondary to a viral syndrome with chest pain of unknown etiology. The patient then was up to the bathroom and it was noted that her heart rate went to the 30s. I evaluated her myself and she was found on the toilet stating that she did not feel well and that she was holding her pulse and she noted it to be low. She also developed a little bit of chest pain when she experienced this. She then was taken back to bed and it was noted that she had some sinus tachycardia with SVT with heart rate in the 130 beats per minute lasting 10 to 12 beats in a row. I asked Dr. Brooks, development mgr, to consult and the diagnosis of tachybrady syndrome was made. The recommendation by Cardiology was for a pacemaker placement as she was found to be symptomatic to these episodes of bradycardia. Discussion was had with the patient, development mgr and her son, and the patient is not interested in pursuing a pacemaker. The patient was considering having a lower dose beta-benji given the fact that she is more symptomatic from a bradycardia episode, which Cardiology thought this was reasonable and to follow up with Dr. Harry and recommended an outpatient Holter monitoring for further evaluation. The patient is a physician and a retired anesthesiologist and reports that she feels comfortable with this decision. The patient's son was available during consultation to translate. The patient was discharged home in care of her son. DISCHARGE MEDICATIONS: 1. Aspirin 81 mg p.o. daily. 2. Paxil 10 mg p.o. daily. 3. Omeprazole 40 mg p.o. daily. 4. Synthroid 50 mcg p.o. daily. 5. Atorvastatin 40 mg p.o. daily. 6. Coreg 3.125 mg p.o. b.i.d. DISCHARGE PLAN: 1. Follow up with primary care provider on 06/22/18. 2. Follow up with Dr. Harry within 1 to 2 weeks. 3. It was instructed for the patient if she has any worsening symptoms to return to the emergency department. The patient understands the risks of the tachybrady syndrome and refusing the pacemaker at this point. The son agrees with the plan. TIME SPENT: Approximately 60 minutes were spent on this discharge. RATNA MOULTON, DEVORA [id number]/[facility] #: [id number] [facility]AMPUSFred
== END 2018-06-16 20:00 | disposition home or self-care (01) | DRG 310 ==
LOC: ED 02:15 → MEDTELE 07:46 → OBSVTOIN 06-15 10:37
PROVIDERS: ADMIT Internal Medicine; ATTEND Internal Medicine
DX: I49.5 Sick sinus syndrome (principal); I11.9 Hypertensive heart disease without heart failure; E11.22 Type 2 diabetes mellitus with diabetic chronic kidney disease; I13.10 Hypertensive heart and chronic kidney disease without heart failure, with stage 1 through stage 4 chronic kidney disease, or unspecified chronic kidney disease; I48.91 Unspecified atrial fibrillation; I44.7 Left bundle-branch block, unspecified; E03.9 Hypothyroidism, unspecified; I25.10 Atherosclerotic heart disease of native coronary artery without angina pectoris; R07.9 Chest pain, unspecified; E78.5 Hyperlipidemia, unspecified; K27.9 Peptic ulcer, site unspecified, unspecified as acute or chronic, without hemorrhage or perforation; Z80.7 Family history of other malignant neoplasms of lymphoid, hematopoietic and related tissues; Z80.3 Family history of malignant neoplasm of breast; Z80.8 Family history of malignant neoplasm of other organs or systems; Z88.8 Allergy status to other drugs, medicaments and biological substances; Z79.82 Long term (current) use of aspirin; Z79.899 Other long term (current) drug therapy
CPT/HCPCS: 36415; 71045; 71046; 71275; 78452; 78582; 80048; 80053; 81003; 83036; 83735; 84145; 84443; 84484; 85025; 85379; 85652; 86140; 87040; 93005; 93017; 93306; 93970; 99285; A9270-GY; A9502; A9540; A9558; G0378; J0280; J1644; J2270; J2785; J3490; Q9967

== ENCOUNTER 2018-06-29 07:59 | Observation (INO) | payer MEDICARE, MEDICAID ==
[2018-06-29] MEDS ORDERED: fentaNYL* 50 MCG/ML 2 ML VIAL (100 MCG VIAL) ONE (08:51)
[2018-06-29] MEDS ORDERED: Lidocaine 1%* 5 ML VIAL ONE (08:51)
[2018-06-29] MEDS ORDERED: Midazolam* 1 MG/ML 5 ML VIAL (5 MG) ONE (08:51)
[2018-06-29] MEDS ORDERED: Diazepam TAB(*) 5 MG ONE (08:55)
[2018-06-29] MEDS ORDERED: ceFAZolin VIAL 1 GM in NS *SYRINGE * * 10 ML ONE (09:00)
[2018-06-29] MEDS ORDERED: ceFAZolin 2 GM PREMIX (*) 2 GM/50 ML BAG IVPB ONE (09:00)
[2018-06-29] MEDS ORDERED: Acetaminophen TAB* 325 MG PO PRN (10:11)
[2018-06-29] MEDS ORDERED: oxyCODONE/Acetamin 5/325 MG* TAB PO PRN (10:11)
--- NOTE | 2018-06-29 15:57 | RAD ---
INDICATION: Status post device implant. COMPARISON: Comparison is made with a prior chest x-ray study from June 14, 2018. TECHNIQUE: A portable view of the chest was obtained. FINDINGS: The heart is within normal limits in size. The patient is status post placement of a dual-chamber transvenous pacemaker. The lungs are clear. No pleural effusion is seen. No pneumothorax is seen. IMPRESSION: STATUS POST PACEMAKER PLACEMENT, NO EVIDENCE FOR PNEUMOTHORAX.
[2018-06-29] MEDS: ceFAZolin 1 GM VIAL(*) 1 GM in NS 0.9% 50 ML* 50 ML IVPB SCH (17:00)
[2018-06-29] MEDS: Carvedilol TAB* 6.25 MG PO SCH (20:39)
[2018-06-30] MEDS: ceFAZolin 1 GM VIAL(*) 1 GM in NS 0.9% 50 ML* 50 ML IVPB SCH ×2 (00:18→08:47)
--- NOTE | 2018-06-30 05:45 | OP ---
DATE OF OPERATION: 06/29/18 - ROOM #440 DATE OF : 39 SURGEON: Arturo Brooks MD ANESTHESIA: Local anesthesia with conscious sedation. PRE-OP DIAGNOSIS: Sick sinus syndrome. POST-OP DIAGNOSIS: Sick sinus syndrome. OPERATIVE PROCEDURE: Dual chamber pacemaker implantation. ESTIMATED BLOOD LOSS: Nil. COMPLICATIONS: None. INDICATIONS: The patient is an 83-year-old female with a history of tachycardia. She had previously been on both beta-benji with calcium channel benji. The patient was admitted to the hospital, was found to be significantly bradycardic and her medications were reduced. At home, the patient continued to have episodes of tachycardia and requested a pacemaker implantation for maximization of medical therapy. DESCRIPTION OF PROCEDURE: The patient was brought to the operating room in a fasting state. Informed consent had been obtained prior to the procedure. All labs were reviewed. Her right pectoral area was prepped and draped in the usual fashion. 1% lidocaine was used for local anesthesia. Under ultrasound guidance, the axillary vein was entered by a modified Seldinger technique and a guidewire was placed. A second guidewire was placed under the same technique. A 3.5 cm incision was made and blunt dissection was carried down to the pectoral fascia. A small pocket was fashioned for the pacemaker. Over the guidewire, a 6-British sheath introducer was placed through which a right ventricular lead was advanced to the RV apex. The right ventricular lead is a [employer] model 2088TC, serial #[id number]. It had a R-wave sensitivity of 6.1, impedance 1000 ohms, threshold 0.5 volts at 0.4 milliseconds. The ventricular lead was sutured to the pectoral fascia. Over the second guidewire , a 6-British sheath introducer was placed through which a right atrial lead was advanced to the high right atrium. The right atrial lead is a [employer] model 2088TC, serial #[id number]. It had a P-wave sensitivity of 3.5, impedance 426 ohms, threshold 0.9 volts at 0.4 milliseconds. The atrial lead was sutured to the pectoral fascia. The pocket was flushed, a generator was attached appropriately to the atrial and ventricular lead. The generator is a [employer] model KX2336, serial #[id number]. The device was placed in the pocket. The surgical incision was closed in 3 layers. The patient tolerated the procedure well with no complications. [id number]/[facility] #: [id number] TIMO
[2018-06-30] MEDS ORDERED: Levothyroxine TAB* 50 MCG TAB PO SCH (06:00)
[2018-06-30 08:35] VITALS: BP 133/68
[2018-06-30] MEDS: Carvedilol TAB* 6.25 MG PO SCH (08:46)
[2018-06-30] MEDS ORDERED: PARoxetine HCL TAB* 10 MG PO SCH (09:00)
[2018-06-30] MEDS ORDERED: Aspirin EC TAB* 81 MG TAB.EC PO SCH (09:00)
--- NOTE | 2018-06-30 12:00 | RAD ---
INDICATION: Status post device implant. COMPARISON: Correlation is made with prior chest x-ray studies from June 13, 2018 and June 29, 2018. TECHNIQUE: Dual-energy PA and lateral views of the chest were obtained. FINDINGS: The heart is within normal limits in size. Mediastinal and hilar contours appear within normal limits. There is a dual-chamber transvenous pacemaker present. The lungs are clear. No pleural effusion or pneumothorax is seen. There is a severe compression fracture of the L1 vertebral body which appears unchanged from the prior studies. IMPRESSION: STATUS POST PACEMAKER PLACEMENT, NO EVIDENCE FOR ACUTE FINDING.
--- NOTE | 2018-06-30 16:26 | DS ---
CC: Dr. Merino.* DISCHARGE SUMMARY: DATE OF ADMISSION: 06/29/18. DATE OF DISCHARGE: 06/30/18. INDICATION FOR ADMISSION: Permanent pacemaker implantation. Please see my admission history and physical and Cardiology consultation from . HOSPITAL COURSE: The patient is an 83-year-old female with a history of tachy- geovanna syndrome. The patient was admitted to the hospital in the middle of June for episodes of lightheadedness. She was found to have tachycardic episodes up to 130 as well as bradycardic episodes down to the 30s. At that time a permanent pacemaker was recommended. However, the patient just wanted to try medical therapy. Patient called my office a week later saying she wanted the pacemaker implanted. The patient is here for dual chamber pacemaker implantation. SUMMARY OF HOSPITAL COURSE: The patient underwent dual chamber pacemaker implantation. She has the [employer] Model 2272 dual chamber pacemaker implanted this morning. The patient's interrogation of her pacemaker shows normal function of her dual chamber pacemaker. Her chest x-ray shows normal position of her atrial and ventricular leads. No evidence of pneumothorax. DISCHARGE MEDICATIONS: 1. Aspirin 81 mg a day. 2. Paroxetine 10 mg a day. 3. Omeprazole 40 mg a day. 4. Levothyroxine 50 mcg a day. 5. Coreg 12.5 mg a day. 6. Atorvastatin 40 mg a day. ALLERGIES: To RENATE INHIBITORS. PHYSICAL EXAM: Temperature 98.8, heart rate of 61, blood pressure of 133/68, respiratory rate of 16. Cardiac Exam: S1, S2 without any murmurs, rubs or gallops. Lungs are clear to auscultation. Extremities show no edema. Her pacemaker site is well healed. There is no hematoma. No ecchymosis. No erythema. New dressing was applied. DISPOSITION: The patient will be discharged home. The patient will have Keflex 500 mg 3 times a day for 3 days. I will see the patient in followup in 1 week. [id number]/[facility] #: [id number] [facility]TDD
== END 2018-06-30 11:25 | disposition home or self-care (01) ==
LOC: CHICATH 07:59 → MEDTELE 10:11
PROVIDERS: ADMIT Specialist; ATTEND Specialist
DX: I49.5 Sick sinus syndrome (principal); R00.1 Bradycardia, unspecified; R00.0 Tachycardia, unspecified; R07.9 Chest pain, unspecified; Z79.82 Long term (current) use of aspirin
CPT/HCPCS: 33208; 71045; 71046; 93005; 96365; 99156; 99157; A9270-GY; C1785; C1898; G0378; J0690; J2250; J3010